=== PATIENT | female | born 1935 | race Caucasian/White ===

== ENCOUNTER 2017-10-02 08:41 | Inpatient (IN) | payer MEDICARE, OTHER ==
[2017-10-02] MEDS ORDERED: NORMAL SALINE 1000 ML 1,000 ML IV ONE (09:06)
[2017-10-02] MEDS ORDERED: FENTANYL CITRATE INJ/PF 100 MCG/2 ML AMPUL IV ONE (09:06)
[2017-10-02] MEDS ORDERED: ONDANSETRON HCL INJ/PF 4 MG/2 ML SDV IV ONE (09:06)
--- NOTE | 2017-10-02 09:07 | ER Document Report ---
ED GI/ - General Chief Complaint: Abdominal Pain >50 Stated Complaint: ABDOMINAL PAIN Time Seen by Provider: 10/02/17 08:59 Mode of Arrival: Ambulatory Information source: Patient Notes: Patient is an 82-year-old female who presents to the ER today for a mass that is painful in her right lower quadrant of the abdomen that started last night and hurt all night long constantly. Patient states that about a month ago this happened and she "pushed it back in." She states that the pain did not return until last night whenever she felt that again. Patient states that it has been giving her some nausea and one episode of vomiting. She denies any diarrhea. She denies any history of hernia that she has been diagnosed with. She denies fevers or chills. TRAVEL OUTSIDE OF THE [place] IN LAST 30 DAYS: No - Related Data Allergies/Adverse Reactions: No Known Allergies Allergy (Verified 10/02/17 08:45) Past Medical History - General Information source: Patient - Social History Smoking Status: Unknown if Ever Smoked Family History: Reviewed & Not Pertinent Review of Systems - Review of Systems Constitutional: No symptoms reported EENT: No symptoms reported Cardiovascular: No symptoms reported Respiratory: No symptoms reported Gastrointestinal: See HPI Genitourinary: No symptoms reported Female Genitourinary: No symptoms reported Musculoskeletal: No symptoms reported Skin: No symptoms reported Hematologic/Lymphatic: No symptoms reported Neurological/Psychological: No symptoms reported Physical Exam - Vital signs Vitals: Temp Pulse Resp BP Pulse Ox 97.5 F 127 H 18 125/68 96 10/02/17 08:48 10/02/17 08:48 10/02/17 08:48 10/02/17 08:48 10/02/17 08:48 - Notes Notes: PHYSICAL EXAMINATION: GENERAL: Well-appearing and in no acute distress. HEAD: Atraumatic, normocephalic. EYES: Pupils equal round and reactive to light, extraocular movements intact, sclera anicteric, conjunctiva are normal. NECK: Normal range of motion, supple without lymphadenopathy LUNGS: CTAB and equal. No wheezes rales or rhonchi. HEART: Regular rate and rhythm without murmurs ABDOMEN: Soft, irreducible soft mass to RLQ with exquisite tenderness, +bowel sounds to mass. No guarding, no rebound BACK: no vertebral tenderness, normal ROM GI/: no CVA tenderness EXTREMITIES: Normal range of motion, no pitting edema. No cyanosis. NEUROLOGICAL: Cranial nerves grossly intact. Normal sensory/motor exams. PSYCH: Normal mood, normal affect. SKIN: Warm, Dry, normal turgor, no rashes or lesions noted Course - Re-evaluation Re-evalutation: 10/02/17 13:15 Patient has a leukocytosis of 13.2, incarcerated right inguinal hernia on CAT scan with small bowel obstruction associated. Dr. Meade, surgeon at bedside attempted to reduce hernia but was unsuccessful. Her PT/INR is prolonged and he is giving her fresh frozen plasma and will take her to the OR in the morning. Hospitalist consultation placed for medical management as she has hypothyroidism, A. fib and cholesterol. - Vital Signs Vital signs: Temp Pulse Resp BP Pulse Ox 97.6 F 109 H 18 137/77 H 94 10/02/17 15:22 10/02/17 15:22 10/02/17 15:22 10/02/17 15:22 10/02/17 15:22 - Laboratory Result Diagrams: 10/02/17 09:34 10/02/17 09:34 Laboratory results interpreted by me: 10/02/17 10/02/17 10/02/17 09:34 09:34 09:34 WBC 13.2 H Hgb 16.0 H Seg Neutrophils % 86.6 H Lymphocytes % 7.7 L Absolute Neutrophils 11.4 H PT APTT Glucose 139 H Urine Protein 100 H Urine Ketones 20 H Urine Blood MODERATE H Urine Urobilinogen 2.0 H Ur Leukocyte Esterase LARGE H 10/02/17 09:34 WBC Hgb Seg Neutrophils % Lymphocytes % Absolute Neutrophils PT 32.0 H APTT 57.1 H Glucose Urine Protein Urine Ketones Urine Blood Urine Urobilinogen Ur Leukocyte Esterase Discharge - Discharge Clinical Impression: Incarcerated inguinal hernia, SBO (small bowel obstruction) Condition: Stable Disposition: ADMITTED INPATIENT Admitting Provider: Surgicalist Unit Admitted: OR
[2017-10-02 09:54] LABS: ABSOLUTE MONOCYTES (AUTO) 0.7 10^3/uL (0.1-1.4); ABSOLUTE NEUT (AUTO) 11.4 10^3/uL (1.7-8.2); BASOPHILS % (AUTO) 0.2 % (0-2); EOSINOPHILS % (AUTO) 0.3 % (0-6); HEMATOCRIT 46.6 % (36.0-47.0); LYMPHOCYTES % (AUTO) 7.7 % (13-45); MEAN CORPUSCULAR HEMOGLOBIN 31.7 pg (27.0-33.4); MEAN CORPUSCULAR HGB CONC 34.4 g/dL (32.0-36.0); MEAN CORPUSCULAR VOLUME 92 fl (80-97); MONOCYTES % (AUTO) 5.2 % (3-13); PLATELET COUNT 364 10^3/uL (150-450); RED BLOOD COUNT 5.06 10^6/uL (3.72-5.28); RED CELL DISTRIBUTION WIDTH 13.6 % (11.5-14.0); SEGMENTED NEUTROPHILS % (AUTO) 86.6 % (42-78); TOTAL CELLS COUNTED % (AUTO) 100 %; WHITE BLOOD COUNT 13.2 10^3/uL (4.0-10.5)
[2017-10-02 10:07] LABS: APPEARANCE,URINE CLOUDY; BILIRUBIN,URINE NEGATIVE (NEGATIVE); COLOR,URINE AMBER; GLUCOSE, URINE NEGATIVE (NEGATIVE); KETONES,URINE 20 mg/dL (NEGATIVE); LEUKOCYTE ESTERASE,URINE LARGE (NEGATIVE); NITRITE,URINE NEGATIVE (NEGATIVE); PROTEIN,URINE 100 mg/dL (NEGATIVE)
[2017-10-02 10:19] LABS: ALANINE AMINOTRANSFERASE 30 U/L (9-52); ALBUMIN 4.4 g/dL (3.5-5.0); ALKALINE PHOSPHATASE 82 U/L (38-126); ANION GAP 12 (5-19); ASPARTATE AMINO TRANSFERASE 18 U/L (14-36); BILIRUBIN,DIRECT 0.4 mg/dL (0.0-0.4); BILIRUBIN,TOTAL 1.2 mg/dL (0.2-1.3); BLOOD UREA NITROGEN 10 mg/dL (7-20); CALCIUM 9.7 mg/dL (8.4-10.2); CARBON DIOXIDE 26 mmol/L (22-30); CHLORIDE 103 mmol/L (98-107); GLUCOSE 139 mg/dL (75-110); LIPASE 103.3 U/L (23-300); SODIUM 141.3 mmol/L (137-145); TOTAL PROTEIN 7.6 g/dL (6.3-8.2)
[2017-10-02] MEDS ORDERED: CEFTRIAXONE INJ 1000 MG VIAL IV ONE (10:20)
--- NOTE | 2017-10-02 11:16 | RADIOLOGY REPORT (SQ) ---
EXAM DESCRIPTION: CT ABD/PELVIS WITH IV ONLY COMPLETED DATE/TIME: 10/02/2017 10:52 am REASON FOR STUDY: right inguinal hernia? not reducible? COMPARISON: None. TECHNIQUE: CT scan of the abdomen and pelvis performed using helical scanning technique with dynamic intravenous contrast injection. No oral contrast. Images reviewed with lung, soft tissue, and bone windows. Reconstructed coronal and sagittal MPR images reviewed. Delayed images for evaluation of the urinary system also acquired. All images stored on PACS. All CT scanners at this facility use dose modulation, iterative reconstruction, and/or weight based d osing when appropriate to reduce radiation dose to as low as reasonably achievable (ALARA). [facility]: Dose Right [facility]: CareDose [facility]: Dose Right [facility]: Teradose 4D [facility]: [employer] CONTRAST TYPE AND DOSE: contrast/concentration: Isovue 370.00 mg/ml; Total Contrast Delivered: 86.0 ml; Total Saline Delivered: 68.0 ml RENAL FUNCTION: GFR > 60. RADIATION DOSE: CT Rad equipment meets quality standard of care and radiation dose reduction techniq ues were employed. CTDIvol: 8.9 - 12.6 mGy. DLP: 1141 mGy-cm.. LIMITATIONS: None. FINDINGS: LOWER CHEST: No significant findings. No nodules or infiltrates. LIVER: Normal size. No masses. No dilated ducts. SPLEEN: Normal size. No focal lesions. PANCREAS: No masses. No significant calcifications. No adjacent inflammation or peripancreatic fluid collections. Pancreatic duct not dilated. GALLBLADDER: Gallstones. No inflammatory changes to suggest cholecystitis. ADRENAL GLANDS: No significant masses or asymmetry. RIGHT KIDNEY AND URETER: No solid masses. No significant calcifications. No hydronephrosis or hyd roureter. LEFT KIDNEY AND URETER: No solid masses. No significant calcifications. No hydronephrosis or hydr oureter. AORTA AND VESSELS: No aneurysm. RETROPERITONEUM: No retroperitoneal adenopathy, hemorrhage or masses. BOWEL AND PERITONEAL CAVITY: Dilated loops of small bowel in the left upper quadrant, midline lower a bdomen and pelvis. There is a right inguinal hernia containing fluid density consistent with bowel. No pneumatosis. No free air. Colon is decompressed. APPENDIX: Normal. PELVIS: Trace free fluid. Normal urinary bladder. ABDOMINAL WALL: See above. BONES: No acute findings. OTHER: No other significant finding. IMPRESSION: Partial small bowel obstruction associated with incarcerated right inguinal hernia. TECHNICAL DOCUMENTATION: JOB ID: [id number] Quality ID # [id number]: Final reports with documentation of one or more dose reduction techniques (e.g., Au tomated exposure control, adjustment of the mA and/or kV according to patient size, use of iterative reconstruction technique) 2010 [employer]- All Rights Reserved Reading location - IP/workstation name: [email or web address] [id number]
[2017-10-02] MEDS ORDERED: HYDROMORPHONE HCL INJ/PF 2 MG/ML AMPULE IV ONE (11:57)
[2017-10-02] MEDS ORDERED: LORAZEPAM INJ 2 MG/1 ML VIAL IV ONE (11:58)
[2017-10-02] MEDS ORDERED: GLYCOPYRROLATE INJ 0.4 MG/2 ML VIAL ONE (12:11)
[2017-10-02] MEDS ORDERED: NEOSTIGMINE METHYLSULFATE 10 MG/10 ML VIAL ONE (12:11)
[2017-10-02] MEDS ORDERED: ROCURONIUM BROMIDE INJ 50 MG/5 ML VIAL IV ONE (12:11)
[2017-10-02] MEDS ORDERED: ONDANSETRON HCL INJ/PF 4 MG/2 ML SDV ONE (12:11)
[2017-10-02] MEDS ORDERED: SUCCINYLCHOLINE CHLORIDE INJ 200 MG/10 ML VIAL ONE (12:11)
[2017-10-02 12:24] LABS: INTERNATIONAL RATION (INR) 2.93
[2017-10-02 12:25] LABS: PARTIAL THROMBOPLASTIN TIME 57.1 SEC (23.5-35.8)
[2017-10-02] MEDS ORDERED: PHYTONADIONE INJ 10 MG/1 ML AMPULE SUBCUT ONE (12:59)
[2017-10-02] MEDS ORDERED: NORMAL SALINE 250 ML IV PRN (12:59)
--- NOTE | 2017-10-02 15:21 | PDOC CONSULTATION ---
Consultation Consult Date: 10/02/17 Attending physician:: KAYLYN MEADE Consult reason:: Abdominal pain and medical management History of Present Illness Admission Date/PCP: 10/02/17 11:51 WILLIAM NUNES MD Patient complains of: Abdominal pain History of Present Illness: SANNA WHITFIELD is a 82 year old female since the emergency department with complaint of abdominal pain. Patient was seen by surgery who was concerned about a partial small bowel obstruction secondary to hernia. Surgery has requested that patient be evaluated by hospitalist service for medical management. Patient states that she experienced abdominal pain and nausea last night which resulted in her coming to the emergency room. Patient denies chest pain, shortness of breath, or fever. Daughters report that patient recently had an echo done prior to an appointment she was supposed to have this upcoming week. Patient had been given FFP and vitamin K to help reverse INR. ER staff states the patient will be scheduled for surgery in a.m. Past Medical History Cardiac Medical History: Reports: Hyperlipidema Endocrine Medical History: Reports: Hypothyroidism Past Surgical History Past Surgical History: Reports: Other - Surgery on knee, surgery on arm, and breast biopsy Social History Information Source: Patient Lives with: Family Smoking Status: Unknown if Ever Smoked Frequency of Alcohol Use: None Hx Recreational Drug Use: No Drugs: None Hx Prescription Drug Abuse: No - Advance Directive Resuscitation Status: Full Code Family History Family History: denies: None, Reviewed & Not Pertinent, Arthritis, CAD, COPD, CVA, DM, Hyperlipidemia, Hypertension, Malignancy, Thyroid Disfunction, Other Parental Family History Reviewed: Yes Children Family History Reviewed: Yes Sibling(s) Family History Reviewed.: Yes Medication/Allergy Home Medications: Diltiazem HCl [Cartia Xt] 300 mg PO DAILY 10/02/17 Levothyroxine Sodium [Synthroid 0.088 mg Tablet] 0.088 mg PO Q6AM 10/02/17 Simvastatin [Zocor 20 mg Tablet] 20 mg PO QHS 10/02/17 Warfarin Sodium [Coumadin 1 mg Tablet] 1 mg PO DAILY 10/02/17 Allergies/Adverse Reactions: No Known Allergies Allergy (Verified 10/02/17 08:45) Review of Systems Constitutional: ABSENT: chills, fever(s), headache(s), weight gain, weight loss Eyes: ABSENT: visual disturbances Ears: ABSENT: hearing changes Cardiovascular: ABSENT: chest pain, dyspnea on exertion, edema, orthropnea, palpitations Respiratory: ABSENT: cough, hemoptysis Gastrointestinal: PRESENT: abdominal pain, nausea Genitourinary: ABSENT: dysuria, hematuria Musculoskeletal: ABSENT: joint swelling Integumentary: ABSENT: rash, wounds Neurological: ABSENT: abnormal gait, abnormal speech, confusion, dizziness, focal weakness, syncope Psychiatric: ABSENT: anxiety, depression, homidical ideation, suicidal ideation Endocrine: ABSENT: cold intolerance, heat intolerance, polydipsia, polyuria Hematologic/Lymphatic: PRESENT: as per HPI Physical Exam Vital Signs: Temp Pulse Resp BP Pulse Ox 97.4 F 107 H 16 148/90 H 98 10/02/17 11:58 10/02/17 11:58 10/02/17 11:58 10/02/17 11:58 10/02/17 11:58 General appearance: PRESENT: no acute distress, well-developed, well-nourished Head exam: PRESENT: atraumatic, normocephalic Eye exam: PRESENT: conjunctiva pink, EOMI. ABSENT: scleral icterus Ear exam: PRESENT: normal external ear exam Mouth exam: PRESENT: moist, tongue midline Neck exam: ABSENT: carotid bruit, JVD, lymphadenopathy, thyromegaly Respiratory exam: PRESENT: clear to auscultation jaimie. ABSENT: rales, rhonchi, wheezes Cardiovascular exam: PRESENT: irregular rhythm Pulses: PRESENT: normal dorsalis pedis pul GI/Abdominal exam: PRESENT: normal bowel sounds, tenderness - Right lower quadrant Rectal exam: PRESENT: deferred Extremities exam: PRESENT: full ROM. ABSENT: calf tenderness, clubbing, pedal edema Musculoskeletal exam: PRESENT: full ROM Neurological exam: PRESENT: alert, awake, oriented to person, oriented to place , oriented to time, oriented to situation, CN II-XII grossly intact. ABSENT: motor sensory deficit Psychiatric exam: PRESENT: appropriate affect, normal mood. ABSENT: homicidal ideation, suicidal ideation Skin exam: PRESENT: dry, intact, warm. ABSENT: cyanosis, rash Results Laboratory Results: 10/02/17 13:34 Blood Type O POSITIVE Impressions: Abdomen/Pelvis CT 10/02/17 09:05 IMPRESSION: Partial small bowel obstruction associated with incarcerated right inguinal hernia. Assessment & Plan - Diagnosis (1) Incarcerated inguinal hernia Is this a current diagnosis for this admission?: Yes Plan: She has been given FFP and vitamin K. Will check PT/INR in a.m. Patient will be scheduled for surgery per ER's report by Dr. Meade. Patient currently n.p.o. we will place on maintenance fluids. (2) Hypothyroidism Is this a current diagnosis for this admission?: Yes Plan: Continue patient's Synthroid (3) Hyperlipidemia Is this a current diagnosis for this admission?: Yes Plan: We will continue patient's statin (4) Atrial fibrillation Is this a current diagnosis for this admission?: Yes Plan: We will continue patient's diltiazem (5) SBO (small bowel obstruction) Is this a current diagnosis for this admission?: Yes Plan: Patient to undergo surgery tomorrow morning (6) DVT prophylaxis Is this a current diagnosis for this admission?: Yes Plan: We will write for SCDs - Time Time Spent: 30 to 50 Minutes
--- NOTE | 2017-10-02 16:23 | PDOC H&P ---
History of Present Illness Admission Date/PCP: 10/02/17 11:51 WILLIAM NUNES MD Patient complains of: Right inguinal pains with N/V History of Present Illness: Patient noted a lump on her right groin last night. She denies cough nor lifting a heavy object. She claimed this happened in July but if went back in spontaneously. Her daughter claimed that patient had flu 2 weeks ago. She was coughing then at that time. Past Medical History Cardiac Medical History: Reports: Atrial Fibrillation, Hyperlipidema Endocrine Medical History: Reports: Hypothyroidism Past Surgical History Past Surgical History: Reports: Other - Surgery on knee, surgery on arm, and breast biopsy Social History Lives with: Family Smoking Status: Unknown if Ever Smoked Frequency of Alcohol Use: None Hx Recreational Drug Use: No Drugs: None Hx Prescription Drug Abuse: No - Advance Directive Resuscitation Status: Full Code Family History Family History: denies: None, Reviewed & Not Pertinent, Arthritis, CAD, COPD, CVA, DM, Hyperlipidemia, Hypertension, Malignancy, Thyroid Disfunction, Other Parental Family History Reviewed: Yes Children Family History Reviewed: No Sibling(s) Family History Reviewed.: No Medication/Allergy Home Medications: Diltiazem HCl [Cartia Xt] 300 mg PO DAILY 10/02/17 Levothyroxine Sodium [Synthroid 0.088 mg Tablet] 0.088 mg PO Q6AM 10/02/17 Simvastatin [Zocor 20 mg Tablet] 20 mg PO QHS 10/02/17 Warfarin Sodium [Coumadin 1 mg Tablet] 6 mg PO DAILY 10/02/17 Allergies/Adverse Reactions: No Known Allergies Allergy (Verified 10/02/17 08:45) Review of Systems Constitutional: PRESENT: as per HPI Eyes: PRESENT: other - no visual/hearing changes Cardiovascular: PRESENT: other - no chest pains/ cough Genitourinary: PRESENT: other - no dysuria Integumentary: PRESENT: other - no rash Neurological: PRESENT: other - no seizures Psychiatric: PRESENT: other - no anxiety Endocrine: PRESENT: other - no polyuria Physical Exam Vital Signs: Temp Pulse Resp BP Pulse Ox 97.6 F 109 H 18 137/77 H 94 10/02/17 15:22 10/02/17 15:22 10/02/17 15:22 10/02/17 15:22 10/02/17 15:22 General appearance: PRESENT: mild distress Head exam: PRESENT: atraumatic, normocephalic Eye exam: PRESENT: conjunctiva pink Mouth exam: PRESENT: moist Neck exam: PRESENT: full ROM Respiratory exam: PRESENT: clear to auscultation jaimie Cardiovascular exam: PRESENT: RRR Pulses: PRESENT: normal radial pulses Vascular exam: PRESENT: normal capillary refill GI/Abdominal exam: PRESENT: soft, tenderness - at the right inguinal area which has nonreducible lump and slightly tender. Rectal exam: PRESENT: deferred Extremities exam: PRESENT: full ROM Musculoskeletal exam: PRESENT: ambulatory Neurological exam: PRESENT: alert, oriented to person, oriented to place, oriented to time, oriented to situation Psychiatric exam: PRESENT: appropriate affect Skin exam: PRESENT: normal color, warm Results Laboratory Results: 10/02/17 13:34 Blood Type O POSITIVE Impressions: Abdomen/Pelvis CT 10/02/17 09:05 IMPRESSION: Partial small bowel obstruction associated with incarcerated right inguinal hernia. Assessment & Plan - Diagnosis (1) Atrial fibrillation Is this a current diagnosis for this admission?: Yes (2) Incarcerated inguinal hernia Is this a current diagnosis for this admission?: Yes (3) SBO (small bowel obstruction) Is this a current diagnosis for this admission?: Yes (4) coagulopathy due to coumadin Is this a current diagnosis for this admission?: Yes - Time Time Spent: 30 to 50 Minutes - Inpatient Certification Medical Necessity: Need For IV Fluids, Need for Pain Control, Need for IV Antibiotics, Need for Surgery - Plan Summary Plan Summary: Correct coagulopathy with FFP and Vit K Medical consult for HR 109 A FIB D/W Anesthesiologist . Obtain EKG and correct tachycardia.
[2017-10-02] MEDS ORDERED: NORMAL SALINE 1000 ML 1,000 ML IV PRN ×2 (16:41→22:52)
--- NOTE | 2017-10-02 17:54 | XCELERA REPORT ---
[address] [address] Transthoracic Echocardiogram Report Name: SANNA WHITFIELD Age: 82 yrs Gender: Female : 1935 Patient Status: Inpatient Patient Location: [address] [place] [address] Study Date: 10/02/2017 05:05 PM Height: 67 in Weight: 176 lb BSA: 1.9 m2 Procedure: A complete two-dimensional transthoracic echocardiogram was performed (2D, M-mode, spectral and color flow Doppler). The study was technically adequate with some images being suboptimal in quality. Reason For Study: pt going to surg/ has a fib Ordering Physician: CHERYL BRADSHAW Performed By: Suha Hubbard Interpretation Summary The Ejection Fraction estimate is 50-55% Left ventricular systolic function is borderline reduced. There is borderline concentric left ventricular hypertrophy. The left ventricle is grossly normal size. Wall motion cannot be accurately commented on, but no definite regional wall motion abnormalities noted. The right ventricle is mildly dilated. The left atrium is severely dilated. The right atrium is moderately dilated. There is a mild amount of mitral regurgitation There is no mitral valve stenosis. There is a mild amount of aortic regurgitation There is no aortic valve stenosis There is a mild amount of tricuspid regurgitation There is mild to moderate pulmonary hypertension by echo Right ventricular systolic pressure is estimated to be elevated at 40- 50mmHg. The aortic root is not well visualized but is probably normal size. The inferior vena cava appeared normal and decreased < 50% with respiration (RAP 10-15 mmHg) There is no pericardial effusion. MMode/2D Measurements & Calculations RVDd: 2.8 cm LVIDd: 4.8 cm FS: 34.1 % Ao root diam: 2.4 cm IVSd: 0.93 cm LVIDs: 3.2 cm EDV(Teich): 109.8 ml LVPWd: 0.87 cm ESV(Teich): 40.7 ml Ao root area: 4.5 cm2 EF(Teich): 62.9 % LA dimension: 4.2 cm Doppler Measurements & Calculations MV E max monica: MV P1/2t max monica: Ao V2 max: AI max monica: 106.6 cm/sec 106.6 cm/sec 90.3 cm/sec 352.9 cm/sec MV P1/2t: 36.4 msec Ao max PG: AI max P.3 mmHg 49.8 mmHg MVA(P1/2t): 6.0 cm2 AI dec slope: MV dec slope: 857.1 cm/sec2 146.3 cm/sec2 AI P1/2t: 706.7 msec LV V1 max PG: PA V2 max: TR max monica: 1.4 mmHg 97.7 cm/sec 303.1 cm/sec LV V1 max: PA max P.8 mmHg TR max P.7 cm/sec 36.8 mmHg Left Ventricle The left ventricle is grossly normal size. There is borderline concentric left ventricular hypertrophy. Left ventricular systolic function is borderline reduced. The Ejection Fraction estimate is 50-55%. LV diastolic function could not be adequately assessed due to atrial fibrilation. Wall motion cannot be accurately commented on, but no definite regional wall motion abnormalities noted. Right Ventricle The right ventricle is mildly dilated. There is normal right ventricular wall thickness. The right ventricular systolic function is normal. Atria The right atrium is moderately dilated. The left atrium is severely dilated. Mitral Valve There is mild mitral leaflet calcification. There is mild mitral annular calcification. There is no mitral valve stenosis. There is a mild amount of mitral regurgitation. Aortic Valve The aortic valve is grossly normal. There is no aortic valve stenosis. There is a mild amount of aortic regurgitation. Tricuspid Valve The tricuspid valve is not well visualized, but is grossly normal. There is no tricuspid stenosis. There is a mild amount of tricuspid regurgitation. There is mild to moderate pulmonary hypertension by echo. Right ventricular systolic pressure is estimated to be elevated at 40-50mmHg. Pulmonic Valve The pulmonic valve is not well visualized. Great Vessels The aortic root is not well visualized but is probably normal size. The inferior vena cava appeared normal and decreased < 50% with respiration (RAP 10-15 mmHg). Effusions There is no pericardial effusion. : CHERYL BRADSHAW > Cheryl Bradshaw
--- NOTE | 2017-10-02 18:47 | PDOC CONSULTATION ---
Consultation Consult Date: 10/02/17 Attending physician:: KAYLYN DAMON Consult reason:: Preop cardiovascular evaluation, atrial fibrillation History of Present Illness Admission Date/PCP: 10/02/17 11:51 WILLIAM NUNES MD Patient complains of: Abdominal pain History of Present Illness: Patient noted a lump on her right groin last night. She denies cough nor lifting a heavy object. She claimed this happened in July but if went back in spontaneously. Her daughter claimed that patient had flu 2 weeks ago. She was coughing then at that time. Patient is now noted to have a obstructed and incarcerated inguinal hernia. Patient noted to have atrial fibrillation. She is on chronic Coumadin therapy with elevated INR. I was asked to evaluate patient and cleared her for surgery. Patient on questioning denied any chest pain. She denied any shortness of breath. Patient denying any PND, orthopnea. Patient denied any prior history of strokes or mini strokes. Past Medical History Cardiac Medical History: Reports: Atrial Fibrillation, Hyperlipidema Endocrine Medical History: Reports: Hypothyroidism Past Surgical History Past Surgical History: Reports: Other - Surgery on knee, surgery on arm, and breast biopsy Social History Information Source: Patient Lives with: Family Smoking Status: Unknown if Ever Smoked Frequency of Alcohol Use: None Hx Recreational Drug Use: No Drugs: None Hx Prescription Drug Abuse: No - Advance Directive Resuscitation Status: Full Code Surrogate healthcare decision maker:: Patient's 2 daughters at the surrogate decision-maker Family History Family History: Hypertension Parental Family History Reviewed: Yes Children Family History Reviewed: Yes Sibling(s) Family History Reviewed.: Yes Medication/Allergy Home Medications: Diltiazem HCl [Cartia Xt] 300 mg PO DAILY 10/02/17 Levothyroxine Sodium [Synthroid 0.088 mg Tablet] 0.088 mg PO Q6AM 10/02/17 Simvastatin [Zocor 20 mg Tablet] 20 mg PO QHS 10/02/17 Warfarin Sodium [Coumadin 1 mg Tablet] 6 mg PO DAILY 10/02/17 Allergies/Adverse Reactions: codeine Allergy (Unverified 10/02/17 17:17) Review of Systems Review of Systems: Please see history of present illness and past medical history as wall. Constitutional: No fever or chills reported. Head : No recent chronic headaches, recent head injury. Eyes: No recent eye pain, diplopia, redness, discharge, acute visual changes. Ears: No recent chronic ear pain, acute hearing loss, ear discharge. Oral cavity: No recent ulcerations, bleeding, oral cavity discomfort. Neck: No recent acute neck pain reported. Hematologic: No recent easy bruising or bleeding or hematologic malignancy reported. Lymphatic: No recent lymphatic malignancy, chronic lymphadenopathy reported yet Cardiovascular system review: See history of present illness. Respiratory system review: No recent chronic cough, hemoptysis, blood clots in the lungs reported. Mild Shortness of breath on exertion Gastrointestinal system review: Abdominal pain and swelling as noted in HPI but denies hematemesis, melena, recent change in bowel habits. Genitourinary system review: No recent acute or chronic hematuria, flank pain, UTI etc. reported. Skin system review: Negative for any recent abnormal bruising, no rash, no pruritus reported. Neurologic: No prior history of strokes, mini strokes, seizure disorder. Psychologic: No history of major psychosis or major depression reported. Musculoskeletal: Minor aches and pains reported. No acute joint swelling reported. Endocrine: No recent polyuria, polydipsia, recent heat or cold intolerance. Physical Exam Vital Signs: Temp Pulse Resp BP Pulse Ox 98.2 F 93 16 152/99 H 97 10/02/17 18:05 10/02/17 18:05 10/02/17 18:05 10/02/17 18:05 10/02/17 18:05 Intake & Output 10/01/17 10/02/17 10/03/17 06:59 06:59 06:59 Intake Total 258 Balance 258 Exam: GENERAL: well-nourished and in no acute distress. Alert and oriented x3 HEAD: Atraumatic, normocephalic. EYES: Pupils equal round and reactive to light, extraocular movements intact, sclera anicteric, conjunctiva are normal. ENT: TMs normal, nares patent, oropharynx clear without exudates. Moist mucous membranes. No oral ulcerations or bleeding gums noted NECK: supple without lymphadenopathy. Trachea is central. No cervical or axillary lymphadenopathy noted. Carotids are 2+, JVD WNL LUNGS: Respiration seems nonlabored, no significant accessory muscle action noted. Breath sounds clear to auscultation bilaterally and equal noted. No wheezes rales or rhonchi noted. No significant dullness noted on percussion. CHEST: Palpation of the chest wall shows no significant chest wall tenderness. No other significant abnormalities noted. 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 ABDOMEN: Tender and somewhat firm swelling noted in the right inguinal region, normoactive bowel sounds. No guarding, no rebound. No rigidity noted . No masses appreciated. EXTREMITIES: Pedal pulses are 1-2+, no calf tenderness noted. No clubbing or cyanosis.trace to 1+ pedal edema noted NEUROLOGICAL: Focused neurological exam showed no significant neurologic deficit. Normal speech, no focal weakness appreciated. PSYCH: Normal mood, normal affect. Judgment and insight within normal limits. SKIN: No significant ecchymosis, skin is noted to be warm. MUSCULOSKELETAL EXAM: No significant acute joint swelling noted. Results Laboratory Results: 10/02/17 13:34 Blood Type O POSITIVE EKG Comments: Atrial fibrillation with reasonably controlled heart rate response and minor nonspecific T-wave changes. Impressions: Abdomen/Pelvis CT 10/02/17 09:05 IMPRESSION: Partial small bowel obstruction associated with incarcerated right inguinal hernia. Assessment & Plan - Diagnosis (1) Preoperative cardiovascular examination Is this a current diagnosis for this admission?: Yes (2) Heart murmur Is this a current diagnosis for this admission?: Yes (3) Mitral regurgitation Qualifiers: Cardiac valve disease etiology: nonrheumatic Qualified Code(s): I34.0 - Nonrheumatic mitral (valve) insufficiency Is this a current diagnosis for this admission?: Yes (4) Aortic incompetence Qualifiers: Cardiac valve disease etiology: nonrheumatic Qualified Code(s): I35.1 - Nonrheumatic aortic (valve) insufficiency Is this a current diagnosis for this admission?: Yes (5) Atrial fibrillation Qualifiers: Atrial fibrillation type: chronic Qualified Code(s): I48.2 - Chronic atrial fibrillation Is this a current diagnosis for this admission?: Yes (6) Hyperlipidemia Qualifiers: Hyperlipidemia type: unspecified Qualified Code(s): E78.5 - Hyperlipidemia , unspecified Is this a current diagnosis for this admission?: Yes (7) Hypothyroidism Qualifiers: Hypothyroidism type: unspecified Qualified Code(s): E03.9 - Hypothyroidism , unspecified Is this a current diagnosis for this admission?: Yes (8) Incarcerated inguinal hernia Is this a current diagnosis for this admission?: Yes (9) coagulopathy due to coumadin Is this a current diagnosis for this admission?: Yes - Notes Notes: Preop cardiovascular examination: Patient cleared for the proposed surgery. Patient currently is stable without any chest pain or shortness of breath. Patient does have atrial fibrillation but heart rate is reasonably well controlled. Patient was noted to have a heart murmur on exam but 2D echo shows just mild valvular regurgitation. Patient's LVEF is around 50-55% and left atrium and right atrium are dilated. At this point patient is hyper coagulated and patient is getting intravenous fresh frozen plasma. I do not feel patient will need a bridge towards anticoagulation postop but would recommend DVT prophylaxis. Heart murmur: Evaluated by 2D echocardiogram. No aortic stenosis noted. Patient noted to have aortic incompetence and mitral regurgitation but these are mild. Atrial fibrillation: For heart rate controlled, recommend Cardizem drip or IV metoprolol and adjust as needed for heart rate control. Hyperlipidemia: He is start statin therapy when allowed p.o. Incarcerated hernia: Surgery is needed. Coagulopathy due to Coumadin: This is being corrected by [facility]. - Time Time Spent: 30 to 50 Minutes - CODE STATUS was discussed, patient remains full code. Surrogate decision-maker unchanged. Multiple medical problems were addressed. More than 50% of the time spent coordinating care, discussing management plans with involved caregivers. Management plans discussed with involved personnels. Medical decision making was of moderate to high complexity , patient's has multiple comorbidities. Medications reviewed and adjusted accordingly: Yes
[2017-10-02] MEDS ORDERED: BUPIVACAINE HCL 0.25 % INJ/PF (2.5 MG/1 ML) 30 ML VIAL ONE (19:30)
[2017-10-02] MEDS ORDERED: HYDROMORPHONE HCL INJ/PF 2 MG/ML AMPULE ONE ×2 (20:03→20:04)
[2017-10-02] MEDS ORDERED: FENTANYL CITRATE INJ/PF 100 MCG/2 ML AMPUL ONE (20:03)
[2017-10-02] MEDS ORDERED: MIDAZOLAM 2 MG/2 ML INJ ONE (20:04)
[2017-10-02] MEDS ORDERED: EPHEDRINE SULFATE INJ 50 MG/1 ML AMPULE ONE (20:04)
[2017-10-02] MEDS ORDERED: PROPOFOL INJ 200 MG/20 ML VIAL IV ONE (20:04)
[2017-10-02] MEDS ORDERED: CEFAZOLIN INJ 1 GM VIAL ONE (21:22)
--- NOTE | 2017-10-02 21:22 | EKG REPORT ---
SEVERITY:- ABNORMAL ECG - ATRIAL FIBRILLATION, V-RATE 68-103 BORDERLINE T ABNORMALITIES, DIFFUSE LEADS : Confirmed by: Cheryl Horner 02-Oct-2017 21:21:31
[2017-10-02] MEDS ORDERED: FENTANYL CITRATE INJ/PF 100 MCG/2 ML AMPUL IV PRN ×3 (21:28)
[2017-10-02] MEDS ORDERED: PROMETHAZINE HCL INJ 25 MG/1 ML VIAL IV PRN (21:28)
[2017-10-02] MEDS ORDERED: DIPHENHYDRAMINE HCL 50 MG/ML VIAL IV PRN (21:28)
[2017-10-02] MEDS ORDERED: METOPROLOL TARTRATE PF/INJ 5 MG/5 ML SDV IV ONE (22:18)
[2017-10-02] MEDS ORDERED: OXYCODONE-ACETAMINOPHEN 5-325 MG TABLET PO PRN (22:45)
[2017-10-02] MEDS ORDERED: CEFAZOLIN 1 GM/D5W RTU 1 GM/50 ML RTUPB IV ONE (22:45)
[2017-10-02] MEDS ORDERED: HYDROMORPHONE HCL INJ/PF 2 MG/ML AMPULE IV PRN (22:46)
--- NOTE | 2017-10-02 23:09 | OPERATIVE REPORT E ---
Operative Report NAME: SANNA WHITFIELD : 1935 AGE: 82Y DATE OF SURGERY: 10/02/2017 ROOM: 220 PREOPERATIVE DIAGNOSIS: Incarcerated right femoral hernia. POSTOPERATIVE DIAGNOSIS: Incarcerated right femoral hernia. OPERATION: Reduction and repair of incarcerated right femoral hernia. ANESTHESIA: General. SURGEON: KAYLYN DAMON M.D. INDICATION: This is an 82-year-old female who noted a lump in the right groin last night. She had some discomfort and sequentially brought to the ED this morning. CT scan of the abdomen revealed an incarcerated femoral hernia with small bowel in the groin inside the hernia. Patient noted to have elevated PT of 2.9 since she is on Coumadin for atrial fib. Her last dose of Coumadin was taken yesterday. She was given about 2 units of fresh frozen plasma and 10 mg of vitamin K subcu and the third unit of fresh frozen plasma running when brought to the OR. DESCRIPTION OF PROCEDURE: After adequate general anesthesia, patient was placed in the supine position and the right groin and abdomen were then prepped and draped in the usual sterile fashion. Patient was given a gram of IV Ancef and an incision was made over the lump on the right groin and taken down further to the subcutaneous area with the use of cautery. Next, a sac was then identified. The tissue through the sac appears to be viable. The sac was bluntly dissected all the way down to the defect in the femoral area and there was an over 1 cm defect and unable to reduce the hernia. The defect was slightly enlarged thru another 0.5 cm with the use of cautery. The sac was then opened and somehow the bowel was reduced before it fully be visualized. However, since there was not any evidence of ischemia through the sac, it appears that the bowel presumed to be viable. There was some small amount of clots on the surface of the sac. This may be more because of the patient's coagulopathy with an INR of 2.9 and it was attempted to be reduced in the Emergency Room. At any rate, the defect was then closed, suturing the inguinal ligament to the Jemal's ligament. About 2 sutures of 0 Prolene were used. The defect was closed nicely. The operative site was then irrigated with saline solution. Adequate hemostasis noted. A very careful good hemostasis primarily with the use of cautery because of the likelihood of still slightly elevated INR. At any rate, the remaining fresh frozen plasma was then completely infused during the procedure. This is the third unit of fresh frozen plasma. Next, the Jen's was then reapproximated with interrupted sutures using 3-0 Vicryl and the skin was then closed with belen. Needle, instrument, sponge count were all correct. ESTIMATED BLOOD LOSS: About 5 mL. DISPOSITION: Patient brought to the recovery room in satisfactory condition. DICTATING PHYSICIAN: KAYLYN DAMON M.D. [id number] PHY#: [id number] ID: [id number] JOB#: [id number] ACCT: [id number] cc:KAYLYN DAMON M.D. >
[2017-10-02] MEDS: SIMVASTATIN 10 MG TABLET PO SCH (23:54)
[2017-10-03 00:08] LABS: INTERNATIONAL RATION (INR) 1.62; PROTHROMBIN TIME 20.2 SEC (11.4-15.4)
[2017-10-03 00:09] LABS: PARTIAL THROMBOPLASTIN TIME 52.2 SEC (23.5-35.8)
[2017-10-03] MEDS ORDERED: HYDRALAZINE HCL INJ/PF 20 MG/1 ML SDV IV PRN (01:39)
[2017-10-03] MEDS ORDERED: DILTIAZEM HCL 240 MG CAPSULE.CR PO ONE (01:45)
[2017-10-03] MEDS: CEFAZOLIN 1 GM/D5W RTU 1 GM/50 ML RTUPB IV SCH ×2 (05:41→14:36)
[2017-10-03] MEDS: LEVOTHYROXINE SODIUM 0.088 MG TABLET PO SCH (05:42)
[2017-10-03 06:31] LABS: INTERNATIONAL RATION (INR) 1.62; PROTHROMBIN TIME 20.2 SEC (11.4-15.4)
[2017-10-03 06:32] LABS: PARTIAL THROMBOPLASTIN TIME 50.8 SEC (23.5-35.8)
[2017-10-03 06:35] LABS: ABSOLUTE EOSINOPHILS # (AUTO) 0.2 10^3/uL (0.0-0.6); ABSOLUTE LYMPHOCYTES (AUTO) 1.5 10^3/uL (0.5-4.7); ABSOLUTE MONOCYTES (AUTO) 0.8 10^3/uL (0.1-1.4); ABSOLUTE NEUT (AUTO) 7.5 10^3/uL (1.7-8.2); BASOPHILS % (AUTO) 0.3 % (0-2); EOSINOPHILS % (AUTO) 1.7 % (0-6); HEMATOCRIT 37.8 % (36.0-47.0); LYMPHOCYTES % (AUTO) 14.8 % (13-45); MEAN CORPUSCULAR HEMOGLOBIN 32.3 pg (27.0-33.4); MEAN CORPUSCULAR HGB CONC 35.5 g/dL (32.0-36.0); MEAN CORPUSCULAR VOLUME 91 fl (80-97); MONOCYTES % (AUTO) 8.2 % (3-13); PLATELET COUNT 262 10^3/uL (150-450); RED BLOOD COUNT 4.15 10^6/uL (3.72-5.28); RED CELL DISTRIBUTION WIDTH 13.6 % (11.5-14.0); TOTAL CELLS COUNTED % (AUTO) 100 %
[2017-10-03 06:36] LABS: HEMOGLOBIN 13.4 g/dL (12.0-15.5)
[2017-10-03 06:44] LABS: ALANINE AMINOTRANSFERASE 27 U/L (9-52); ALBUMIN 3.6 g/dL (3.5-5.0); ALKALINE PHOSPHATASE 69 U/L (38-126); ANION GAP 8 (5-19); ASPARTATE AMINO TRANSFERASE 18 U/L (14-36); BILIRUBIN,DIRECT 0.3 mg/dL (0.0-0.4); BILIRUBIN,TOTAL 0.9 mg/dL (0.2-1.3); BLOOD UREA NITROGEN 7 mg/dL (7-20); CALCIUM 8.5 mg/dL (8.4-10.2); CARBON DIOXIDE 27 mmol/L (22-30); CHLORIDE 106 mmol/L (98-107); GLUCOSE 96 mg/dL (75-110); POTASSIUM 3.4 mmol/L (3.6-5.0); TOTAL PROTEIN 6.5 g/dL (6.3-8.2)
--- NOTE | 2017-10-03 09:00 | EKG REPORT ---
SEVERITY:- ABNORMAL ECG - ATRIAL FIBRILLATION, V-RATE 64-116 BORDERLINE T ABNORMALITIES, DIFFUSE LEADS : Confirmed by: Cheryl Horner 03-Oct-2017 08:59:17
[2017-10-03] MEDS ORDERED: (PENDING PHARMACY ID) (Diltiazem Hcl [Cartia Xt] 300 MG) PO SCH (10:00)
--- NOTE | 2017-10-03 12:14 | PDOC PROGRESS REPORT ---
Subjective Progress Note for:: 10/03/17 Subjective:: No new issues. Reason For Visit: UNILATERAL INCARCERATED INGUINAL HERNIA Physical Exam Vital Signs: Temp Pulse Resp BP Pulse Ox 98.0 F 74 18 154/96 H 96 10/03/17 05:14 10/03/17 07:00 10/03/17 05:14 10/03/17 05:14 10/03/17 05:14 Intake & Output 10/02/17 10/03/17 10/04/17 06:59 06:59 06:59 Intake Total 2295 Output Total 635 Balance 1660 Weight 82.6 kg General appearance: PRESENT: no acute distress, well-developed, well-nourished Head exam: PRESENT: atraumatic, normocephalic Eye exam: PRESENT: conjunctiva pink, EOMI. ABSENT: scleral icterus Ear exam: PRESENT: normal external ear exam Mouth exam: PRESENT: moist, tongue midline Neck exam: ABSENT: carotid bruit, JVD, lymphadenopathy, thyromegaly Respiratory exam: PRESENT: clear to auscultation jaimie. ABSENT: rales, rhonchi, wheezes Cardiovascular exam: PRESENT: RRR. ABSENT: diastolic murmur, rubs, systolic murmur Pulses: PRESENT: normal dorsalis pedis pul Vascular exam: PRESENT: normal capillary refill GI/Abdominal exam: PRESENT: normal bowel sounds, tenderness Rectal exam: PRESENT: deferred Extremities exam: PRESENT: full ROM. ABSENT: calf tenderness, clubbing, pedal edema Neurological exam: PRESENT: alert, awake, oriented to person, oriented to place , oriented to time, oriented to situation, CN II-XII grossly intact. ABSENT: motor sensory deficit Psychiatric exam: PRESENT: appropriate affect, normal mood. ABSENT: homicidal ideation, suicidal ideation Skin exam: PRESENT: dry, intact, warm. ABSENT: cyanosis, rash Results Laboratory Results: 10/03/17 05:34 10/03/17 05:34 10/02/17 10/03/17 10/03/17 13:34 05:34 05:34 WBC 10.0 RBC 4.15 Hgb 13.4 D Hct 37.8 MCV 91 MCH 32.3 MCHC 35.5 RDW 13.6 Plt Count 262 Seg Neutrophils % 75.0 Lymphocytes % 14.8 Monocytes % 8.2 Eosinophils % 1.7 Basophils % 0.3 Absolute Neutrophils 7.5 Absolute Lymphocytes 1.5 Absolute Monocytes 0.8 Absolute Eosinophils 0.2 Absolute Basophils 0.0 Sodium 141.0 Potassium 3.4 L Chloride 106 Carbon Dioxide 27 Anion Gap 8 BUN 7 Creatinine 0.60 Est GFR ( Amer) > 60 Est GFR (Non-Af Amer) > 60 Glucose 96 Calcium 8.5 Magnesium 1.9 Total Bilirubin 0.9 AST 18 ALT 27 Alkaline Phosphatase 69 Total Protein 6.5 Albumin 3.6 Blood Type O POSITIVE Impressions: Abdomen/Pelvis CT 10/02/17 09:05 IMPRESSION: Partial small bowel obstruction associated with incarcerated right inguinal hernia. Assessment & Plan - Diagnosis (1) Incarcerated inguinal hernia Is this a current diagnosis for this admission?: Yes Plan: Status post reduction and repair of incarcerated right femoral hernia: Per surgery (2) Hypothyroidism Qualifiers: Hypothyroidism type: unspecified Qualified Code(s): E03.9 - Hypothyroidism , unspecified Is this a current diagnosis for this admission?: Yes Plan: Continue patient's Synthroid (3) Hyperlipidemia Qualifiers: Hyperlipidemia type: unspecified Qualified Code(s): E78.5 - Hyperlipidemia , unspecified Is this a current diagnosis for this admission?: Yes Plan: We will continue patient's statin (4) Atrial fibrillation Qualifiers: Atrial fibrillation type: chronic Qualified Code(s): I48.2 - Chronic atrial fibrillation Is this a current diagnosis for this admission?: Yes Plan: We will continue patient's diltiazem (5) SBO (small bowel obstruction) Is this a current diagnosis for this admission?: Yes Plan: Status post reduction and repair of incarcerated femoral hernia: Per surgery (6) Hypokalemia Is this a current diagnosis for this admission?: Yes Plan: Will give potassium replacement. Will check BMP and Mg in a.m. (7) DVT prophylaxis Is this a current diagnosis for this admission?: Yes Plan: We will write for SCDs - Time Time Spent with patient: 15-24 minutes
[2017-10-03] MEDS: POTASSI CL 20 MEQ/50 ML RIDER 20 MEQ/50 ML RTUPB IV SCH ×2 (16:40→19:03)
[2017-10-03] MEDS ORDERED: POTASSIUM CHLORIDE 20 MEQ/15 ML UDCUP PO ONE (19:00)
--- NOTE | 2017-10-03 19:41 | PDOC PROGRESS REPORT ---
Subjective Progress Note for:: 10/03/17 Subjective:: Pains right inguinal incision on coughing Tolerated regular diet Reason For Visit: UNILATERAL INCARCERATED INGUINAL HERNIA Physical Exam Vital Signs: Temp Pulse Resp BP Pulse Ox 99.0 F 53 L 20 118/56 L 94 10/03/17 15:01 10/03/17 15:01 10/03/17 15:01 10/03/17 15:01 10/03/17 15:01 Intake & Output 10/02/17 10/03/17 10/04/17 06:59 06:59 06:59 Intake Total 2295 437 Output Total 635 200 Balance 1660 237 Weight 82.6 kg Exam: Abdomen is soft and nontender Incision is clean and dry Results Laboratory Results: 10/03/17 05:34 10/03/17 05:34 10/02/17 10/03/17 10/03/17 13:34 05:34 05:34 WBC 10.0 RBC 4.15 Hgb 13.4 D Hct 37.8 MCV 91 MCH 32.3 MCHC 35.5 RDW 13.6 Plt Count 262 Seg Neutrophils % 75.0 Lymphocytes % 14.8 Monocytes % 8.2 Eosinophils % 1.7 Basophils % 0.3 Absolute Neutrophils 7.5 Absolute Lymphocytes 1.5 Absolute Monocytes 0.8 Absolute Eosinophils 0.2 Absolute Basophils 0.0 Sodium 141.0 Potassium 3.4 L Chloride 106 Carbon Dioxide 27 Anion Gap 8 BUN 7 Creatinine 0.60 Est GFR ( Amer) > 60 Est GFR (Non-Af Amer) > 60 Glucose 96 Calcium 8.5 Magnesium 1.9 Total Bilirubin 0.9 AST 18 ALT 27 Alkaline Phosphatase 69 Total Protein 6.5 Albumin 3.6 Blood Type O POSITIVE Impressions: Abdomen/Pelvis CT 10/02/17 09:05 IMPRESSION: Partial small bowel obstruction associated with incarcerated right inguinal hernia. Assessment & Plan - Diagnosis (1) Atrial fibrillation Qualifiers: Atrial fibrillation type: chronic Qualified Code(s): I48.2 - Chronic atrial fibrillation Is this a current diagnosis for this admission?: Yes (2) Incarcerated inguinal hernia Is this a current diagnosis for this admission?: Yes (3) SBO (small bowel obstruction) Is this a current diagnosis for this admission?: Yes (4) coagulopathy due to coumadin Is this a current diagnosis for this admission?: Yes - Time Time Spent with patient: 15-24 minutes - Plan Summary Plan Summary: Continue regular diet Correct low potassium Recheck blood work in am and if all are normal will discharge
--- NOTE | 2017-10-03 20:38 | PDOC PROGRESS REPORT ---
Subjective Progress Note for:: 10/03/17 Subjective:: Feeling better. Patient seems to be doing better with gradual improvement. Pt is denying any chest arm or neck discomfort. Patient denying any PND, orthopnea. Patient denied any sustained palpitations, dizziness, syncope, near syncope. Patient denying any fever chills. Patient denying any other significant discomfort, except for some pain at the surgical site. Patient is maintaining atrial fibrillation. Heart rate is somewhat increased. Review of systems: Rest review of systems negative. Medications: Medications have been reviewed. Reason For Visit: UNILATERAL INCARCERATED INGUINAL HERNIA Physical Exam Vital Signs: Temp Pulse Resp BP Pulse Ox 97.7 F 111 H 14 130/63 H 96 10/03/17 19:36 10/03/17 19:36 10/03/17 19:36 10/03/17 19:36 10/03/17 19:36 Intake & Output 10/02/17 10/03/17 10/04/17 06:59 06:59 06:59 Intake Total 2295 437 Output Total 635 200 Balance 1660 237 Weight 82.6 kg Exam: GENERAL: well-nourished and in no acute distress. Alert and oriented x3 HEAD: Atraumatic, normocephalic. EYES: Pupils equal round and reactive to light, extraocular movements intact, sclera anicteric, conjunctiva are normal. ENT: TMs normal, nares patent, oropharynx clear without exudates. Moist mucous membranes. No oral ulcerations or bleeding gums noted NECK: supple without lymphadenopathy. Trachea is central. No cervical or axillary lymphadenopathy noted. Carotids are 2+, JVD WNL LUNGS: Respiration seems nonlabored, no significant accessory muscle action noted. Breath sounds clear to auscultation bilaterally and equal noted. No wheezes rales or rhonchi noted. No significant dullness noted on percussion. CHEST: Palpation of the chest wall shows no significant chest wall tenderness. No other significant abnormalities noted. 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 ABDOMEN: Soft, surgical site significant tenderness appreciated, normoactive bowel sounds. No guarding, no rebound. No rigidity noted . No masses appreciated. EXTREMITIES: Pedal pulses are 1-2+, no calf tenderness noted. No clubbing or cyanosis.trace to 1+ pedal edema noted NEUROLOGICAL: Focused neurological exam showed no significant neurologic deficit. Normal speech, no focal weakness appreciated. PSYCH: Normal mood, normal affect. Judgment and insight within normal limits. SKIN: No significant ecchymosis, skin is noted to be warm. MUSCULOSKELETAL EXAM: No significant acute joint swelling noted. Results Laboratory Results: 10/03/17 05:34 10/03/17 05:34 10/03/17 10/03/17 05:34 05:34 WBC 10.0 RBC 4.15 Hgb 13.4 D Hct 37.8 MCV 91 MCH 32.3 MCHC 35.5 RDW 13.6 Plt Count 262 Seg Neutrophils % 75.0 Lymphocytes % 14.8 Monocytes % 8.2 Eosinophils % 1.7 Basophils % 0.3 Absolute Neutrophils 7.5 Absolute Lymphocytes 1.5 Absolute Monocytes 0.8 Absolute Eosinophils 0.2 Absolute Basophils 0.0 Sodium 141.0 Potassium 3.4 L Chloride 106 Carbon Dioxide 27 Anion Gap 8 BUN 7 Creatinine 0.60 Est GFR ( Amer) > 60 Est GFR (Non-Af Amer) > 60 Glucose 96 Calcium 8.5 Magnesium 1.9 Total Bilirubin 0.9 AST 18 ALT 27 Alkaline Phosphatase 69 Total Protein 6.5 Albumin 3.6 EKG Comments: Telemetry shows atrial fibrillation with somewhat rapid ventricular response at times. EKG shows no acute ST-T wave changes. Impressions: Abdomen/Pelvis CT 10/02/17 09:05 IMPRESSION: Partial small bowel obstruction associated with incarcerated right inguinal hernia. Assessment & Plan - Diagnosis (1) Preoperative cardiovascular examination Is this a current diagnosis for this admission?: Yes (2) Heart murmur Is this a current diagnosis for this admission?: Yes (3) Mitral regurgitation Qualifiers: Cardiac valve disease etiology: nonrheumatic Qualified Code(s): I34.0 - Nonrheumatic mitral (valve) insufficiency Is this a current diagnosis for this admission?: Yes (4) Aortic incompetence Qualifiers: Cardiac valve disease etiology: nonrheumatic Qualified Code(s): I35.1 - Nonrheumatic aortic (valve) insufficiency Is this a current diagnosis for this admission?: Yes (5) Atrial fibrillation Qualifiers: Atrial fibrillation type: chronic Qualified Code(s): I48.2 - Chronic atrial fibrillation Is this a current diagnosis for this admission?: Yes (6) Hyperlipidemia Qualifiers: Hyperlipidemia type: unspecified Qualified Code(s): E78.5 - Hyperlipidemia , unspecified Is this a current diagnosis for this admission?: Yes (7) Hypothyroidism Qualifiers: Hypothyroidism type: unspecified Qualified Code(s): E03.9 - Hypothyroidism , unspecified Is this a current diagnosis for this admission?: Yes (8) Incarcerated inguinal hernia Is this a current diagnosis for this admission?: Yes (9) coagulopathy due to coumadin Is this a current diagnosis for this admission?: Yes - Notes Notes: Patient had undergone surgery without any complications. Atrial fibrillation: Continue with rate controlled. Resume chronic anticoagulation when cleared by surgery. Have placed patient on increased doses of beta-shweta for rate control. Will follow tomorrow for adequacy of rate control. Cardiac exam shows no evidence of CHF. Continue patient's medications. There are reviewed and noted to be satisfactory. - Time Time with patient: 15-25 minutes - CODE STATUS was discussed, patient remains full code. Surrogate decision-maker unchanged. Multiple medical problems were addressed. More than 50% of the time spent coordinating care, discussing management plans with involved caregivers. Management plans discussed with involved personnels. Medical decision making was of moderate to high complexity , patient's has multiple comorbidities. Medications reviewed and adjusted accordingly: Yes
[2017-10-03] MEDS ORDERED: DILTIAZEM HCL 240 MG CAPSULE.CR PO SCH (22:00)
[2017-10-03] MEDS: SIMVASTATIN 10 MG TABLET PO SCH (22:29)
[2017-10-03] MEDS: CEFTRIAXONE SODIUM 1,000 MG in NORMAL SALINE 100 ML IV SCH (22:37)
[2017-10-04] MEDS ORDERED: VANCOMYCIN HCL INJ 1000 MG VIAL IV PRN (00:02)
[2017-10-04] MEDS ORDERED: VANCOMYCIN HCL 1,000 MG in DEXTROSE 5%-WATER 250 ML IV ONE (00:15)
[2017-10-04] MEDS ORDERED: VANCOMYCIN HCL INJ 1000 MG VIAL ONE (00:48)
[2017-10-04 03:41] LABS: ABSOLUTE BASOPHILS # (AUTO) 0.1 10^3/uL (0.0-0.2); ABSOLUTE EOSINOPHILS # (AUTO) 0.1 10^3/uL (0.0-0.6); ABSOLUTE LYMPHOCYTES (AUTO) 1.9 10^3/uL (0.5-4.7); ABSOLUTE NEUT (AUTO) 6.5 10^3/uL (1.7-8.2); BASOPHILS % (AUTO) 0.6 % (0-2); EOSINOPHILS % (AUTO) 1.3 % (0-6); HEMATOCRIT 37.2 % (36.0-47.0); HEMOGLOBIN 13.1 g/dL (12.0-15.5); LYMPHOCYTES % (AUTO) 19.5 % (13-45); MEAN CORPUSCULAR HEMOGLOBIN 32.1 pg (27.0-33.4); MEAN CORPUSCULAR HGB CONC 35.3 g/dL (32.0-36.0); MEAN CORPUSCULAR VOLUME 91 fl (80-97); MONOCYTES % (AUTO) 10.3 % (3-13); PLATELET COUNT 250 10^3/uL (150-450); RED BLOOD COUNT 4.09 10^6/uL (3.72-5.28); RED CELL DISTRIBUTION WIDTH 13.5 % (11.5-14.0); SEGMENTED NEUTROPHILS % (AUTO) 68.3 % (42-78); TOTAL CELLS COUNTED % (AUTO) 100 %; WHITE BLOOD COUNT 9.5 10^3/uL (4.0-10.5)
[2017-10-04 03:56] LABS: ANION GAP 8 (5-19); BLOOD UREA NITROGEN 7 mg/dL (7-20); CALCIUM 8.9 mg/dL (8.4-10.2); CARBON DIOXIDE 24 mmol/L (22-30); CHLORIDE 110 mmol/L (98-107); GLUCOSE 112 mg/dL (75-110); POTASSIUM 3.6 mmol/L (3.6-5.0); SODIUM 141.5 mmol/L (137-145)
[2017-10-04] MEDS: LEVOTHYROXINE SODIUM 0.088 MG TABLET PO SCH (05:30)
[2017-10-04 08:25] LABS: INTERNATIONAL RATION (INR) 1.37; PROTHROMBIN TIME 17.7 SEC (11.4-15.4)
[2017-10-04 08:26] LABS: PARTIAL THROMBOPLASTIN TIME 53.3 SEC (23.5-35.8)
--- NOTE | 2017-10-04 09:19 | PDOC PROGRESS REPORT ---
Subjective Progress Note for:: 10/04/17 Subjective:: She states that she is feeling better today. Patient states that she has not had any fever or sweating episodes. Patient's daughter was at bedside and family was made aware of patient's blood culture being positive. Awaiting ID of organism. Reason For Visit: UNILATERAL INCARCERATED INGUINAL HERNIA Physical Exam Vital Signs: Temp Pulse Resp BP Pulse Ox 98.8 F 94 16 133/67 H 94 10/04/17 04:04 10/04/17 07:00 10/04/17 04:04 10/04/17 04:04 10/04/17 04:04 Intake & Output 10/03/17 10/04/17 10/05/17 06:59 06:59 06:59 Intake Total 2295 1805 Output Total 635 1450 Balance 1660 355 Weight 82.6 kg 82.4 kg General appearance: PRESENT: no acute distress, well-developed, well-nourished Head exam: PRESENT: atraumatic, normocephalic Eye exam: PRESENT: conjunctiva pink, EOMI. ABSENT: scleral icterus Ear exam: PRESENT: normal external ear exam Mouth exam: PRESENT: moist, tongue midline Neck exam: ABSENT: carotid bruit, JVD, lymphadenopathy, thyromegaly Respiratory exam: PRESENT: clear to auscultation jaimie. ABSENT: rales, rhonchi, wheezes Cardiovascular exam: PRESENT: RRR. ABSENT: diastolic murmur, rubs, systolic murmur Pulses: PRESENT: normal dorsalis pedis pul Vascular exam: PRESENT: normal capillary refill GI/Abdominal exam: PRESENT: normal bowel sounds, soft, tenderness. ABSENT: distended, guarding, mass, organolmegaly, rebound Rectal exam: PRESENT: deferred Extremities exam: PRESENT: full ROM. ABSENT: calf tenderness, clubbing, pedal edema Musculoskeletal exam: PRESENT: full ROM Neurological exam: PRESENT: alert, awake, oriented to person, oriented to place , oriented to time, oriented to situation, CN II-XII grossly intact. ABSENT: motor sensory deficit Psychiatric exam: PRESENT: appropriate affect, normal mood. ABSENT: homicidal ideation, suicidal ideation Skin exam: PRESENT: dry, intact, warm. ABSENT: cyanosis, rash Results Laboratory Results: 10/04/17 03:20 10/04/17 03:20 10/04/17 10/04/17 03:20 03:20 WBC 9.5 RBC 4.09 Hgb 13.1 Hct 37.2 MCV 91 MCH 32.1 MCHC 35.3 RDW 13.5 Plt Count 250 Seg Neutrophils % 68.3 Lymphocytes % 19.5 Monocytes % 10.3 Eosinophils % 1.3 Basophils % 0.6 Absolute Neutrophils 6.5 Absolute Lymphocytes 1.9 Absolute Monocytes 1.0 Absolute Eosinophils 0.1 Absolute Basophils 0.1 Sodium 141.5 Potassium 3.6 Chloride 110 H Carbon Dioxide 24 Anion Gap 8 BUN 7 Creatinine 0.62 Est GFR ( Amer) > 60 Est GFR (Non-Af Amer) > 60 Glucose 112 H Calcium 8.9 Magnesium 1.9 Impressions: Abdomen/Pelvis CT 10/02/17 09:05 IMPRESSION: Partial small bowel obstruction associated with incarcerated right inguinal hernia. Assessment & Plan - Diagnosis (1) Incarcerated inguinal hernia Is this a current diagnosis for this admission?: Yes Plan: Status post reduction and repair of incarcerated right femoral hernia: Per surgery (2) Hypothyroidism Qualifiers: Hypothyroidism type: unspecified Qualified Code(s): E03.9 - Hypothyroidism , unspecified Is this a current diagnosis for this admission?: Yes Plan: Continue patient's Synthroid (3) Hyperlipidemia Qualifiers: Hyperlipidemia type: unspecified Qualified Code(s): E78.5 - Hyperlipidemia , unspecified Is this a current diagnosis for this admission?: Yes Plan: We will continue patient's statin (4) Atrial fibrillation Qualifiers: Atrial fibrillation type: chronic Qualified Code(s): I48.2 - Chronic atrial fibrillation Is this a current diagnosis for this admission?: Yes Plan: We will continue patient's diltiazem (5) SBO (small bowel obstruction) Is this a current diagnosis for this admission?: Yes Plan: Status post reduction and repair of incarcerated femoral hernia: Per surgery (6) Hypokalemia Is this a current diagnosis for this admission?: Yes Plan: Resolved. (7) Gram-positive cocci bacteremia Is this a current diagnosis for this admission?: Yes Plan: Patient currently on vancomycin. Awaiting ID and sensitivities of culture. (8) DVT prophylaxis Is this a current diagnosis for this admission?: Yes Plan: SCDs - Time Time Spent with patient: 15-24 minutes
[2017-10-04] MEDS ORDERED: PHARMACY COMMUNICATION ORDER MC SCH (10:00)
--- NOTE | 2017-10-04 10:35 | EKG REPORT ---
SEVERITY:- ABNORMAL ECG - ATRIAL FIBRILLATION, V-RATE 54-122 VENTRICULAR TRIGEMINY BORDERLINE T ABNORMALITIES, DIFFUSE LEADS : Confirmed by: Cheryl Horner 04-Oct-2017 10:34:49
[2017-10-04] MEDS ORDERED: POLYETHYLENE GLYCOL 3350 POWDER 17 GM/1 PACKET PO ONE (11:00)
[2017-10-04] MEDS: VANCOMYCIN HCL 1,000 MG in DEXTROSE 5%-WATER 250 ML IV SCH (13:11)
--- NOTE | 2017-10-04 13:19 | PDOC PROGRESS REPORT ---
Subjective Progress Note for:: 10/04/17 Subjective:: Feels well. groin pain only when she moves. Tolerating diet well with no nausea. No abdominal pain. Reason For Visit: UNILATERAL INCARCERATED INGUINAL HERNIA Physical Exam Vital Signs: Temp Pulse Resp BP Pulse Ox 97.9 F 105 H 17 118/63 97 10/04/17 12:28 10/04/17 12:28 10/04/17 12:28 10/04/17 12:28 10/04/17 12:28 Intake & Output 10/03/17 10/04/17 10/05/17 06:59 06:59 06:59 Intake Total 2295 1805 340 Output Total 635 1450 Balance 1660 355 340 Weight 82.6 kg 82.4 kg General appearance: PRESENT: no acute distress, cooperative Respiratory exam: PRESENT: clear to auscultation jaimie Cardiovascular exam: PRESENT: irregular rhythm GI/Abdominal exam: PRESENT: other - Soft, nondistended, nontender to palpation other than mild tenderness at the groin. No erythema. And no swelling at the groin. Results Laboratory Results: 10/04/17 03:20 10/04/17 03:20 10/04/17 10/04/17 03:20 03:20 WBC 9.5 RBC 4.09 Hgb 13.1 Hct 37.2 MCV 91 MCH 32.1 MCHC 35.3 RDW 13.5 Plt Count 250 Seg Neutrophils % 68.3 Lymphocytes % 19.5 Monocytes % 10.3 Eosinophils % 1.3 Basophils % 0.6 Absolute Neutrophils 6.5 Absolute Lymphocytes 1.9 Absolute Monocytes 1.0 Absolute Eosinophils 0.1 Absolute Basophils 0.1 Sodium 141.5 Potassium 3.6 Chloride 110 H Carbon Dioxide 24 Anion Gap 8 BUN 7 Creatinine 0.62 Est GFR ( Amer) > 60 Est GFR (Non-Af Amer) > 60 Glucose 112 H Calcium 8.9 Magnesium 1.9 Impressions: Abdomen/Pelvis CT 10/02/17 09:05 IMPRESSION: Partial small bowel obstruction associated with incarcerated right inguinal hernia. Assessment & Plan - Diagnosis (1) Femoral hernia of right side Is this a current diagnosis for this admission?: Yes Plan: Status post repair. Patient looks good from a surgical standpoint. However patient has had a rapid ventricular rate with her A. fib. She also had a positive gram-positive blood culture which I suspect is a contaminant but will await final culture result. When she is stable from a medical standpoint will discharge patient home. We will go ahead and restart her Coumadin.
[2017-10-04] MEDS ORDERED: (PENDING PHARMACY ID) (Warfarin Sodium 6 MG) PO SCH (13:30)
[2017-10-04] MEDS ORDERED: DILTIAZEM HCL 180 MG CAPSULE.CR PO ONE (14:00)
--- NOTE | 2017-10-04 20:28 | PDOC PROGRESS REPORT ---
Subjective Progress Note for:: 10/04/17 Subjective:: Feeling better. Patient however noted to have elevated heart rate on minimal exertion. Patient denying any chest or abdominal discomfort. Blood cultures noted to be growing some bacteria. Patient somewhat upset about it. Reason For Visit: UNILATERAL INCARCERATED INGUINAL HERNIA Physical Exam Vital Signs: Temp Pulse Resp BP Pulse Ox 98.1 F 87 20 123/78 98 10/04/17 15:00 10/04/17 15:00 10/04/17 15:00 10/04/17 15:00 10/04/17 15:00 Intake & Output 10/03/17 10/04/17 10/05/17 06:59 06:59 06:59 Intake Total 2295 1805 590 Output Total 635 1450 Balance 1660 355 590 Weight 82.6 kg 82.4 kg Exam: GENERAL: well-nourished and in no acute distress. Alert and oriented x3 HEAD: Atraumatic, normocephalic. EYES: Pupils equal round and reactive to light, extraocular movements intact, sclera anicteric, conjunctiva are normal. ENT: TMs normal, nares patent, oropharynx clear without exudates. Moist mucous membranes. No oral ulcerations or bleeding gums noted NECK: supple without lymphadenopathy. Trachea is central. No cervical or axillary lymphadenopathy noted. Carotids are 2+, JVD WNL LUNGS: Respiration seems nonlabored, no significant accessory muscle action noted. Breath sounds clear to auscultation bilaterally and equal noted. No wheezes rales or rhonchi noted. No significant dullness noted on percussion. CHEST: Palpation of the chest wall shows no significant chest wall tenderness. No other significant abnormalities noted. HEART: [place] [employer], No PSH, 1/6 JASE aortic area, 1/6 bazan systolic murmur mitral area, no rubs, no gallops. ABDOMEN: Soft, mild postsurgical tenderness appreciated, normoactive bowel sounds. No guarding, no rebound. No rigidity noted . No masses appreciated. EXTREMITIES: Pedal pulses are 1-2+, no calf tenderness noted. No clubbing or cyanosis.trace to 1+ pedal edema noted NEUROLOGICAL: Focused neurological exam showed no significant neurologic deficit. Normal speech, no focal weakness appreciated. PSYCH: Normal mood, normal affect. Judgment and insight within normal limits. SKIN: No significant ecchymosis, skin is noted to be warm. MUSCULOSKELETAL EXAM: No significant acute joint swelling noted. Results Laboratory Results: 10/04/17 03:20 10/04/17 03:20 10/04/17 10/04/17 03:20 03:20 WBC 9.5 RBC 4.09 Hgb 13.1 Hct 37.2 MCV 91 MCH 32.1 MCHC 35.3 RDW 13.5 Plt Count 250 Seg Neutrophils % 68.3 Lymphocytes % 19.5 Monocytes % 10.3 Eosinophils % 1.3 Basophils % 0.6 Absolute Neutrophils 6.5 Absolute Lymphocytes 1.9 Absolute Monocytes 1.0 Absolute Eosinophils 0.1 Absolute Basophils 0.1 Sodium 141.5 Potassium 3.6 Chloride 110 H Carbon Dioxide 24 Anion Gap 8 BUN 7 Creatinine 0.62 Est GFR ( Amer) > 60 Est GFR (Non-Af Amer) > 60 Glucose 112 H Calcium 8.9 Magnesium 1.9 EKG Comments: Telemetry shows atrial fibrillation with mildly rapid ventricular response especially on exertion. Impressions: Abdomen/Pelvis CT 10/02/17 09:05 IMPRESSION: Partial small bowel obstruction associated with incarcerated right inguinal hernia. Assessment & Plan - Diagnosis (1) Preoperative cardiovascular examination Is this a current diagnosis for this admission?: Yes (2) Heart murmur Is this a current diagnosis for this admission?: Yes (3) Mitral regurgitation Qualifiers: Cardiac valve disease etiology: nonrheumatic Qualified Code(s): I34.0 - Nonrheumatic mitral (valve) insufficiency Is this a current diagnosis for this admission?: Yes (4) Aortic incompetence Qualifiers: Cardiac valve disease etiology: nonrheumatic Qualified Code(s): I35.1 - Nonrheumatic aortic (valve) insufficiency Is this a current diagnosis for this admission?: Yes (5) Atrial fibrillation Qualifiers: Atrial fibrillation type: chronic Qualified Code(s): I48.2 - Chronic atrial fibrillation Is this a current diagnosis for this admission?: Yes (6) Hyperlipidemia Qualifiers: Hyperlipidemia type: unspecified Qualified Code(s): E78.5 - Hyperlipidemia , unspecified Is this a current diagnosis for this admission?: Yes (7) Hypothyroidism Qualifiers: Hypothyroidism type: unspecified Qualified Code(s): E03.9 - Hypothyroidism , unspecified Is this a current diagnosis for this admission?: Yes (8) Incarcerated inguinal hernia Is this a current diagnosis for this admission?: Yes (9) coagulopathy due to coumadin Is this a current diagnosis for this admission?: Yes - Notes Notes: Atrial fibrillation: Dose of Cardizem CD increased to 180 mg p.o. twice daily. May need to add small dose of beta-shweta if needed. Hyperlipidemia: Recommend statin therapy. Incarcerated hernia: Resolved after surgery Coagulopathy due to Coumadin: This has resolved. Recommend reinstituting chronic Coumadin therapy. - Time Time with patient: 15-25 minutes - CODE STATUS was discussed, patient remains full code. Surrogate decision-maker unchanged. Multiple medical problems were addressed. More than 50% of the time spent coordinating care, discussing management plans with involved caregivers. Management plans discussed with involved personnels. Medical decision making was of moderate to high complexity , patient's has multiple comorbidities. Medications reviewed and adjusted accordingly: Yes
[2017-10-04] MEDS ORDERED: DILTIAZEM HCL 180 MG CAPSULE.CR PO SCH (22:00)
[2017-10-04] MEDS ORDERED: DILTIAZEM HCL 120 MG CAP.SR.24H PO SCH ×2 (22:00)
[2017-10-04] MEDS: DILTIAZEM HCL 180 MG CAPSULE.CR PO SCH (22:16)
[2017-10-04] MEDS: WARFARIN SODIUM 2 MG TABLET PO SCH (22:18)
[2017-10-04] MEDS: SIMVASTATIN 10 MG TABLET PO SCH (22:19)
[2017-10-04] MEDS: CEFTRIAXONE SODIUM 1,000 MG in NORMAL SALINE 100 ML IV SCH (22:20)
[2017-10-05] MEDS: VANCOMYCIN HCL 1,000 MG in DEXTROSE 5%-WATER 250 ML IV SCH ×2 (00:07→12:00)
[2017-10-05 05:50] LABS: ABSOLUTE BASOPHILS # (AUTO) 0.1 10^3/uL (0.0-0.2); ABSOLUTE EOSINOPHILS # (AUTO) 0.2 10^3/uL (0.0-0.6); ABSOLUTE LYMPHOCYTES (AUTO) 1.5 10^3/uL (0.5-4.7); ABSOLUTE MONOCYTES (AUTO) 0.8 10^3/uL (0.1-1.4); ABSOLUTE NEUT (AUTO) 5.2 10^3/uL (1.7-8.2); BASOPHILS % (AUTO) 0.9 % (0-2); HEMATOCRIT 35.7 % (36.0-47.0); HEMOGLOBIN 12.5 g/dL (12.0-15.5); MEAN CORPUSCULAR VOLUME 91 fl (80-97); MONOCYTES % (AUTO) 9.8 % (3-13); PLATELET COUNT 271 10^3/uL (150-450); RED CELL DISTRIBUTION WIDTH 13.4 % (11.5-14.0); SEGMENTED NEUTROPHILS % (AUTO) 68.3 % (42-78); TOTAL CELLS COUNTED % (AUTO) 100 %; WHITE BLOOD COUNT 7.7 10^3/uL (4.0-10.5)
[2017-10-05 05:56] LABS: INTERNATIONAL RATION (INR) 1.17; PROTHROMBIN TIME 15.6 SEC (11.4-15.4)
[2017-10-05 06:15] LABS: ALANINE AMINOTRANSFERASE 28 U/L (9-52); ALKALINE PHOSPHATASE 60 U/L (38-126); ANION GAP 8 (5-19); ASPARTATE AMINO TRANSFERASE 12 U/L (14-36); BILIRUBIN,DIRECT 0.4 mg/dL (0.0-0.4); BILIRUBIN,TOTAL 0.8 mg/dL (0.2-1.3); BLOOD UREA NITROGEN 11 mg/dL (7-20); CALCIUM 8.9 mg/dL (8.4-10.2); CARBON DIOXIDE 23 mmol/L (22-30); CHLORIDE 109 mmol/L (98-107); GLUCOSE 109 mg/dL (75-110); POTASSIUM 3.6 mmol/L (3.6-5.0); TOTAL PROTEIN 5.7 g/dL (6.3-8.2)
[2017-10-05] MEDS: LEVOTHYROXINE SODIUM 0.088 MG TABLET PO SCH (06:36)
[2017-10-05] MEDS ORDERED: POLYETHYLENE GLYCOL 3350 POWDER 17 GM/1 PACKET PO ONE (09:00)
[2017-10-05] MEDS: DILTIAZEM HCL 180 MG CAPSULE.CR PO SCH ×2 (09:59→22:21)
[2017-10-05] MEDS ORDERED: POLYETHYLENE GLYCOL 3350 POWDER 17 GM/1 PACKET PO SCH (10:00)
[2017-10-05 12:31] LABS: VANCOMYCIN,TROUGH 10.7 ug/mL (5.0-20.0)
--- NOTE | 2017-10-05 15:02 | PDOC PROGRESS REPORT ---
Subjective Progress Note for:: 10/05/17 Subjective:: She states that she is doing much better. Patient states she has been ambulating around the hallway. Patient states she has not had a bowel movement in 3-4 days. Daughter states that she uses MiraLAX normally but due to abdominal pain and nausea she has not been able to take MiraLAX. Reason For Visit: UNILATERAL INCARCERATED INGUINAL HERNIA Physical Exam Vital Signs: Temp Pulse Resp BP Pulse Ox 98.2 F 93 20 116/68 98 10/05/17 12:47 10/05/17 14:00 10/05/17 12:47 10/05/17 12:47 10/05/17 12:47 Intake & Output 10/04/17 10/05/17 10/06/17 06:59 06:59 06:59 Intake Total 1805 1340 570 Output Total 1450 Balance 355 1340 570 Weight 82.4 kg General appearance: PRESENT: no acute distress, well-developed, well-nourished Head exam: PRESENT: atraumatic, normocephalic Eye exam: PRESENT: conjunctiva pink, EOMI. ABSENT: scleral icterus Ear exam: PRESENT: normal external ear exam Mouth exam: PRESENT: moist, tongue midline Neck exam: ABSENT: carotid bruit, JVD, lymphadenopathy, thyromegaly Respiratory exam: PRESENT: clear to auscultation jaimie. ABSENT: rales, rhonchi, wheezes Cardiovascular exam: PRESENT: RRR. ABSENT: diastolic murmur, rubs, systolic murmur Pulses: PRESENT: normal dorsalis pedis pul Vascular exam: PRESENT: normal capillary refill GI/Abdominal exam: PRESENT: other - Positive for bowel sounds, tenderness at site of surgical incision, no erythema redness Rectal exam: PRESENT: deferred Extremities exam: PRESENT: full ROM. ABSENT: calf tenderness, clubbing, pedal edema Neurological exam: PRESENT: alert, awake, oriented to person, oriented to place , oriented to time, oriented to situation, CN II-XII grossly intact. ABSENT: motor sensory deficit Psychiatric exam: PRESENT: appropriate affect, normal mood. ABSENT: homicidal ideation, suicidal ideation Skin exam: PRESENT: dry, intact, warm. ABSENT: cyanosis, rash Results Laboratory Results: 10/05/17 05:12 10/05/17 11:44 10/05/17 10/05/17 10/05/17 05:12 05:12 11:44 WBC 7.7 RBC 3.90 Hgb 12.5 Hct 35.7 L MCV 91 MCH 32.0 MCHC 35.0 RDW 13.4 Plt Count 271 Seg Neutrophils % 68.3 Lymphocytes % 19.0 Monocytes % 9.8 Eosinophils % 2.0 Basophils % 0.9 Absolute Neutrophils 5.2 Absolute Lymphocytes 1.5 Absolute Monocytes 0.8 Absolute Eosinophils 0.2 Absolute Basophils 0.1 Sodium 140.0 Potassium 3.6 Chloride 109 H Carbon Dioxide 23 Anion Gap 8 BUN 11 Creatinine 0.71 0.74 Est GFR ( Amer) > 60 > 60 Est GFR (Non-Af Amer) > 60 > 60 Glucose 109 Calcium 8.9 Total Bilirubin 0.8 AST 12 L ALT 28 Alkaline Phosphatase 60 Total Protein 5.7 L Albumin 3.0 L 10/03/17 17:42 Clean Catch Midstream Urine Culture - Final NO GROWTH 2 DAYS Impressions: Abdomen/Pelvis CT 10/02/17 09:05 IMPRESSION: Partial small bowel obstruction associated with incarcerated right inguinal hernia. Assessment & Plan - Diagnosis (1) Incarcerated inguinal hernia Is this a current diagnosis for this admission?: Yes Plan: Status post reduction and repair of incarcerated right femoral hernia: Per surgery (2) Hypothyroidism Qualifiers: Hypothyroidism type: unspecified Qualified Code(s): E03.9 - Hypothyroidism , unspecified Is this a current diagnosis for this admission?: Yes Plan: Continue patient's Synthroid (3) Hyperlipidemia Qualifiers: Hyperlipidemia type: unspecified Qualified Code(s): E78.5 - Hyperlipidemia , unspecified Is this a current diagnosis for this admission?: Yes Plan: We will continue patient's statin (4) Atrial fibrillation Qualifiers: Atrial fibrillation type: chronic Qualified Code(s): I48.2 - Chronic atrial fibrillation Is this a current diagnosis for this admission?: Yes Plan: We will continue patient's diltiazem and patient restarted on Coumadin. (5) SBO (small bowel obstruction) Is this a current diagnosis for this admission?: Yes Plan: Status post reduction and repair of incarcerated femoral hernia: Resolved (6) Hypokalemia Is this a current diagnosis for this admission?: Yes Plan: Resolved. (7) Gram-positive cocci bacteremia Is this a current diagnosis for this admission?: Yes Plan: Contamination. Antibiotics discontinued (8) Constipation Is this a current diagnosis for this admission?: Yes Plan: We will write for soapsuds enema. If patient has bowel movement patient okay to go home. (9) DVT prophylaxis Is this a current diagnosis for this admission?: Yes Plan: SCDs - Time Time Spent with patient: 15-24 minutes
[2017-10-05] MEDS: RINGERS SOLUTION,LACTATED 1,000 ML IV PRN (18:42)
[2017-10-05] MEDS: ONDANSETRON HCL INJ/PF 4 MG/2 ML SDV IV PRN (21:36)
--- NOTE | 2017-10-05 21:46 | PDOC PROGRESS REPORT ---
Subjective Progress Note for:: 10/05/17 Subjective:: About to be discharged when she vomitted greenish fluid Reason For Visit: UNILATERAL INCARCERATED INGUINAL HERNIA Physical Exam Vital Signs: Temp Pulse Resp BP Pulse Ox 99.0 F 79 13 130/85 H 97 10/05/17 19:21 10/05/17 19:21 10/05/17 19:21 10/05/17 19:21 10/05/17 19:21 Intake & Output 10/04/17 10/05/17 10/06/17 06:59 06:59 06:59 Intake Total 1805 1340 970 Output Total 1450 Balance 355 1340 970 Weight 82.4 kg General appearance: PRESENT: no acute distress Exam: abd is soft and nontender. Has chronic problems with constipation and takes MIRALAX every morning for years. Had some response to enema and took MIRALAX this am. Results Laboratory Results: 10/05/17 05:12 10/05/17 11:44 10/05/17 10/05/17 10/05/17 05:12 05:12 11:44 WBC 7.7 RBC 3.90 Hgb 12.5 Hct 35.7 L MCV 91 MCH 32.0 MCHC 35.0 RDW 13.4 Plt Count 271 Seg Neutrophils % 68.3 Lymphocytes % 19.0 Monocytes % 9.8 Eosinophils % 2.0 Basophils % 0.9 Absolute Neutrophils 5.2 Absolute Lymphocytes 1.5 Absolute Monocytes 0.8 Absolute Eosinophils 0.2 Absolute Basophils 0.1 Sodium 140.0 Potassium 3.6 Chloride 109 H Carbon Dioxide 23 Anion Gap 8 BUN 11 Creatinine 0.71 0.74 Est GFR ( Amer) > 60 > 60 Est GFR (Non-Af Amer) > 60 > 60 Glucose 109 Calcium 8.9 Total Bilirubin 0.8 AST 12 L ALT 28 Alkaline Phosphatase 60 Total Protein 5.7 L Albumin 3.0 L 10/03/17 17:42 Clean Catch Midstream Urine Culture - Final NO GROWTH 2 DAYS Impressions: Abdomen/Pelvis CT 10/02/17 09:05 IMPRESSION: Partial small bowel obstruction associated with incarcerated right inguinal hernia. Assessment & Plan - Diagnosis (1) Atrial fibrillation Qualifiers: Atrial fibrillation type: chronic Qualified Code(s): I48.2 - Chronic atrial fibrillation Is this a current diagnosis for this admission?: Yes (2) Incarcerated inguinal hernia Is this a current diagnosis for this admission?: Yes (3) SBO (small bowel obstruction) Is this a current diagnosis for this admission?: Yes (4) coagulopathy due to coumadin Is this a current diagnosis for this admission?: Yes (5) Constipation Is this a current diagnosis for this admission?: Yes - Time Time Spent with patient: 15-24 minutes - Plan Summary Plan Summary: Cancel discharge. Hydrate and try clears for now. Re-evaluate in am. Vomiting may be due to her constipation Try enema in am.
[2017-10-05] MEDS: WARFARIN SODIUM 2 MG TABLET PO SCH (22:21)
[2017-10-05] MEDS: SIMVASTATIN 10 MG TABLET PO SCH (22:21)
[2017-10-06] MEDS: RINGERS SOLUTION,LACTATED 1,000 ML IV PRN ×2 (03:44→18:46)
[2017-10-06] MEDS: LEVOTHYROXINE SODIUM 0.088 MG TABLET PO SCH (05:48)
[2017-10-06 06:54] LABS: ABSOLUTE EOSINOPHILS # (AUTO) 0.1 10^3/uL (0.0-0.6); ABSOLUTE LYMPHOCYTES (AUTO) 1.9 10^3/uL (0.5-4.7); ABSOLUTE MONOCYTES (AUTO) 0.7 10^3/uL (0.1-1.4); ABSOLUTE NEUT (AUTO) 5.2 10^3/uL (1.7-8.2); BASOPHILS % (AUTO) 0.4 % (0-2); EOSINOPHILS % (AUTO) 1.6 % (0-6); HEMATOCRIT 36.9 % (36.0-47.0); HEMOGLOBIN 12.7 g/dL (12.0-15.5); LYMPHOCYTES % (AUTO) 23.9 % (13-45); MEAN CORPUSCULAR HEMOGLOBIN 31.7 pg (27.0-33.4); MEAN CORPUSCULAR HGB CONC 34.4 g/dL (32.0-36.0); MEAN CORPUSCULAR VOLUME 92 fl (80-97); MONOCYTES % (AUTO) 8.4 % (3-13); PLATELET COUNT 285 10^3/uL (150-450); RED BLOOD COUNT 4.01 10^6/uL (3.72-5.28); RED CELL DISTRIBUTION WIDTH 13.6 % (11.5-14.0); SEGMENTED NEUTROPHILS % (AUTO) 65.7 % (42-78); TOTAL CELLS COUNTED % (AUTO) 100 %; WHITE BLOOD COUNT 7.9 10^3/uL (4.0-10.5)
[2017-10-06 07:09] LABS: ANION GAP 10 (5-19); BLOOD UREA NITROGEN 9 mg/dL (7-20); CALCIUM 9.1 mg/dL (8.4-10.2); CARBON DIOXIDE 26 mmol/L (22-30); CHLORIDE 104 mmol/L (98-107); GLUCOSE 104 mg/dL (75-110); INTERNATIONAL RATION (INR) 1.15; POTASSIUM 3.9 mmol/L (3.6-5.0); PROTHROMBIN TIME 15.5 SEC (11.4-15.4); SODIUM 139.7 mmol/L (137-145)
[2017-10-06] MEDS ORDERED: POLYETHYLENE GLYCOL 3350 POWDER 17 GM/1 PACKET PO SCH ×2 (08:00)
[2017-10-06] MEDS: DILTIAZEM HCL 180 MG CAPSULE.CR PO SCH ×2 (09:29→21:36)
[2017-10-06] MEDS ORDERED: KETOROLAC TROMETHAMINE 10 MG TABLET PO PRN (10:59)
--- NOTE | 2017-10-06 10:59 | PDOC PROGRESS REPORT ---
Subjective Progress Note for:: 10/06/17 Reason For Visit: UNILATERAL INCARCERATED INGUINAL HERNIA And has not had a bowel movement in days; she has a long history She has had abdominal discomfort, food intolerance nausea and vomiting. Physical Exam Vital Signs: Temp Pulse Resp BP Pulse Ox 97.9 F 55 L 16 102/77 96 10/06/17 07:41 10/06/17 07:41 10/06/17 07:41 10/06/17 07:41 10/06/17 07:41 Intake & Output 10/05/17 10/06/17 10/07/17 06:59 06:59 07:59 Intake Total 1340 2270 Balance 1340 2270 Weight 82.1 kg General appearance: PRESENT: no acute distress GI/Abdominal exam: PRESENT: other - Not appearing abdomen; incision dressing removed and belen intact, requisite bruising as expected. There are no peritoneal signs. Results Laboratory Results: 10/06/17 06:08 10/06/17 06:08 10/05/17 10/06/17 10/06/17 11:44 06:08 06:08 WBC 7.9 RBC 4.01 Hgb 12.7 Hct 36.9 MCV 92 MCH 31.7 MCHC 34.4 RDW 13.6 Plt Count 285 Seg Neutrophils % 65.7 Lymphocytes % 23.9 Monocytes % 8.4 Eosinophils % 1.6 Basophils % 0.4 Absolute Neutrophils 5.2 Absolute Lymphocytes 1.9 Absolute Monocytes 0.7 Absolute Eosinophils 0.1 Absolute Basophils 0.0 Sodium 139.7 Potassium 3.9 Chloride 104 Carbon Dioxide 26 Anion Gap 10 BUN 9 Creatinine 0.74 0.64 Est GFR ( Amer) > 60 > 60 Est GFR (Non-Af Amer) > 60 > 60 Glucose 104 Calcium 9.1 10/03/17 17:42 Clean Catch Midstream Urine Culture - Final NO GROWTH 2 DAYS Impressions: Abdomen/Pelvis CT 10/02/17 09:05 IMPRESSION: Partial small bowel obstruction associated with incarcerated right inguinal hernia. Assessment & Plan - Time Disposition: Impression: 4 days status post repair of femoral hernia without mesh; no postoperative complications; slow return of bowel function likely due to chronic constipation, immobility pain medication etc. Medications: 1. We will get his cathartic this morning 2. Hold all narcotic pain medications 3. Anticipate discharge home later today or tomorrow pending clinical response.
--- NOTE | 2017-10-06 10:59 | PDOC PROGRESS REPORT ---
Subjective Progress Note for:: 10/06/17 Subjective:: Patient had one episode of emesis overnight. Had any more episodes of emesis. Patient states that she is afraid to eat. Patient did have a bowel movement with soapsuds enema. Reason For Visit: UNILATERAL INCARCERATED INGUINAL HERNIA Physical Exam Vital Signs: Temp Pulse Resp BP Pulse Ox 97.9 F 55 L 16 102/77 96 10/06/17 07:41 10/06/17 07:41 10/06/17 07:41 10/06/17 07:41 10/06/17 07:41 Intake & Output 10/05/17 10/06/17 10/07/17 06:59 06:59 07:59 Intake Total 1340 2270 Balance 1340 2270 Weight 82.1 kg General appearance: PRESENT: no acute distress, well-developed, well-nourished Head exam: PRESENT: atraumatic, normocephalic Eye exam: PRESENT: conjunctiva pink, EOMI. ABSENT: scleral icterus Ear exam: PRESENT: normal external ear exam Mouth exam: PRESENT: moist, tongue midline Neck exam: ABSENT: carotid bruit, JVD, lymphadenopathy, thyromegaly Respiratory exam: PRESENT: clear to auscultation jaimie. ABSENT: rales, rhonchi, wheezes Cardiovascular exam: PRESENT: RRR. ABSENT: diastolic murmur, rubs, systolic murmur Pulses: PRESENT: normal dorsalis pedis pul Vascular exam: PRESENT: normal capillary refill GI/Abdominal exam: PRESENT: normal bowel sounds, soft, tenderness. ABSENT: distended, guarding, mass, organolmegaly, rebound Rectal exam: PRESENT: deferred Extremities exam: PRESENT: full ROM. ABSENT: calf tenderness, clubbing, pedal edema Neurological exam: PRESENT: alert, awake, oriented to person, oriented to place , oriented to time, oriented to situation, CN II-XII grossly intact. ABSENT: motor sensory deficit Psychiatric exam: PRESENT: appropriate affect, normal mood. ABSENT: homicidal ideation, suicidal ideation Skin exam: PRESENT: dry, intact, warm. ABSENT: cyanosis, rash Results Laboratory Results: 10/06/17 06:08 10/06/17 06:08 10/05/17 10/06/17 10/06/17 11:44 06:08 06:08 WBC 7.9 RBC 4.01 Hgb 12.7 Hct 36.9 MCV 92 MCH 31.7 MCHC 34.4 RDW 13.6 Plt Count 285 Seg Neutrophils % 65.7 Lymphocytes % 23.9 Monocytes % 8.4 Eosinophils % 1.6 Basophils % 0.4 Absolute Neutrophils 5.2 Absolute Lymphocytes 1.9 Absolute Monocytes 0.7 Absolute Eosinophils 0.1 Absolute Basophils 0.0 Sodium 139.7 Potassium 3.9 Chloride 104 Carbon Dioxide 26 Anion Gap 10 BUN 9 Creatinine 0.74 0.64 Est GFR ( Amer) > 60 > 60 Est GFR (Non-Af Amer) > 60 > 60 Glucose 104 Calcium 9.1 10/03/17 17:42 Clean Catch Midstream Urine Culture - Final NO GROWTH 2 DAYS Impressions: Abdomen/Pelvis CT 10/02/17 09:05 IMPRESSION: Partial small bowel obstruction associated with incarcerated right inguinal hernia. Assessment & Plan - Diagnosis (1) Constipation Is this a current diagnosis for this admission?: Yes Plan: Will give mag citrate 1. Patient had enema last night with good results. (2) Incarcerated inguinal hernia Is this a current diagnosis for this admission?: Yes Plan: Status post reduction and repair of incarcerated right femoral hernia: Per surgery (3) Hypothyroidism Qualifiers: Hypothyroidism type: unspecified Qualified Code(s): E03.9 - Hypothyroidism , unspecified Is this a current diagnosis for this admission?: Yes Plan: Continue patient's Synthroid (4) Hyperlipidemia Qualifiers: Hyperlipidemia type: unspecified Qualified Code(s): E78.5 - Hyperlipidemia , unspecified Is this a current diagnosis for this admission?: Yes Plan: We will continue patient's statin (5) Atrial fibrillation Qualifiers: Atrial fibrillation type: chronic Qualified Code(s): I48.2 - Chronic atrial fibrillation Is this a current diagnosis for this admission?: Yes Plan: We will continue patient's diltiazem and patient restarted on Coumadin. (6) SBO (small bowel obstruction) Is this a current diagnosis for this admission?: Yes Plan: Status post reduction and repair of incarcerated femoral hernia: Resolved (7) Hypokalemia Is this a current diagnosis for this admission?: Yes Plan: Resolved. (8) Gram-positive cocci bacteremia Is this a current diagnosis for this admission?: Yes Plan: Contamination. Antibiotics discontinued (9) DVT prophylaxis Is this a current diagnosis for this admission?: Yes Plan: SCDs - Time Time Spent with patient: 15-24 minutes - Patient has no further episodes of emesis patient should be able to go home today. Patient given mag citrate patient should have bowel movement today.
[2017-10-06] MEDS ORDERED: MAGNESIUM CITRATE 296 ML BOTTLE PO ONE (12:30)
[2017-10-06] MEDS: ONDANSETRON HCL INJ/PF 4 MG/2 ML SDV IV PRN (15:28)
--- NOTE | 2017-10-06 15:30 | PDOC PROGRESS REPORT ---
Subjective Progress Note for:: 10/05/17 Subjective:: Feeling better. Heart rate seems well controlled at increased Cardizem dose.. Patient denying any chest or abdominal discomfort. No new complaints except for constipation. Tolerating p.o. well Reason For Visit: UNILATERAL INCARCERATED INGUINAL HERNIA Physical Exam Vital Signs: Temp Pulse Resp BP Pulse Ox 99.0 F 79 13 130/85 H 97 10/05/17 19:21 10/05/17 19:21 10/05/17 19:21 10/05/17 19:21 10/05/17 19:21 Intake & Output 10/04/17 10/05/17 10/06/17 06:59 06:59 06:59 Intake Total 1805 1340 970 Output Total 1450 Balance 355 1340 970 Weight 82.4 kg Exam: GENERAL: well-nourished and in no acute distress. Alert and oriented x3 HEAD: Atraumatic, normocephalic. EYES: Pupils equal round and reactive to light, extraocular movements intact, sclera anicteric, conjunctiva are normal. ENT: TMs normal, nares patent, oropharynx clear without exudates. Moist mucous membranes. No oral ulcerations or bleeding gums noted NECK: supple without lymphadenopathy. Trachea is central. No cervical or axillary lymphadenopathy noted. Carotids are 2+, JVD WNL LUNGS: Respiration seems nonlabored, no significant accessory muscle action noted. Breath sounds clear to auscultation bilaterally and equal noted. No wheezes rales or rhonchi noted. No significant dullness noted on percussion. CHEST: Palpation of the chest wall shows no significant chest wall tenderness. No other significant abnormalities noted. HEART: [place] [employer], No PSH, 1/6 JASE aortic area, 1/6 bazan systolic murmur mitral area, no rubs, no gallops. ABDOMEN: Soft, slight surgical site tenderness appreciated, normoactive bowel sounds. No guarding, no rebound. No rigidity noted . No masses appreciated. EXTREMITIES: Pedal pulses are 1-2+, no calf tenderness noted. No clubbing or cyanosis.trace to 1+ pedal edema noted NEUROLOGICAL: Focused neurological exam showed no significant neurologic deficit. Normal speech, no focal weakness appreciated. PSYCH: Normal mood, normal affect. Judgment and insight within normal limits. SKIN: No significant ecchymosis, skin is noted to be warm. MUSCULOSKELETAL EXAM: No significant acute joint swelling noted. Results Laboratory Results: 10/05/17 05:12 10/05/17 11:44 10/05/17 10/05/17 10/05/17 05:12 05:12 11:44 WBC 7.7 RBC 3.90 Hgb 12.5 Hct 35.7 L MCV 91 MCH 32.0 MCHC 35.0 RDW 13.4 Plt Count 271 Seg Neutrophils % 68.3 Lymphocytes % 19.0 Monocytes % 9.8 Eosinophils % 2.0 Basophils % 0.9 Absolute Neutrophils 5.2 Absolute Lymphocytes 1.5 Absolute Monocytes 0.8 Absolute Eosinophils 0.2 Absolute Basophils 0.1 Sodium 140.0 Potassium 3.6 Chloride 109 H Carbon Dioxide 23 Anion Gap 8 BUN 11 Creatinine 0.71 0.74 Est GFR ( Amer) > 60 > 60 Est GFR (Non-Af Amer) > 60 > 60 Glucose 109 Calcium 8.9 Total Bilirubin 0.8 AST 12 L ALT 28 Alkaline Phosphatase 60 Total Protein 5.7 L Albumin 3.0 L 10/03/17 17:42 Clean Catch Midstream Urine Culture - Final NO GROWTH 2 DAYS EKG Comments: Telemetry shows atrial fibrillation with controlled ventricular response Impressions: Abdomen/Pelvis CT 10/02/17 09:05 IMPRESSION: Partial small bowel obstruction associated with incarcerated right inguinal hernia. Assessment & Plan - Diagnosis (1) Preoperative cardiovascular examination Is this a current diagnosis for this admission?: Yes (2) Heart murmur Is this a current diagnosis for this admission?: Yes (3) Mitral regurgitation Qualifiers: Cardiac valve disease etiology: nonrheumatic Qualified Code(s): I34.0 - Nonrheumatic mitral (valve) insufficiency Is this a current diagnosis for this admission?: Yes (4) Aortic incompetence Qualifiers: Cardiac valve disease etiology: nonrheumatic Qualified Code(s): I35.1 - Nonrheumatic aortic (valve) insufficiency Is this a current diagnosis for this admission?: Yes (5) Atrial fibrillation Qualifiers: Atrial fibrillation type: chronic Qualified Code(s): I48.2 - Chronic atrial fibrillation Is this a current diagnosis for this admission?: Yes (6) Hyperlipidemia Qualifiers: Hyperlipidemia type: unspecified Qualified Code(s): E78.5 - Hyperlipidemia , unspecified Is this a current diagnosis for this admission?: Yes (7) Hypothyroidism Qualifiers: Hypothyroidism type: unspecified Qualified Code(s): E03.9 - Hypothyroidism , unspecified Is this a current diagnosis for this admission?: Yes (8) Incarcerated inguinal hernia Is this a current diagnosis for this admission?: Yes (9) coagulopathy due to coumadin Is this a current diagnosis for this admission?: Yes - Notes Notes: Atrial fibrillation: Currently heart rate well controlled on current dose of Cardizem CD 180 mg p.o twice daily. Could increase this further if needed or add small dose of beta-shweta.. Hyperlipidemia: Recommend statin therapy. Incarcerated hernia: Resolved after surgery Coagulopathy due to Coumadin: This has resolved. Coumadin has been reinstituted. INR goal is between 2 and 3. Will sign off as patient has done well cardiac manley. - Time Time with patient: 15-25 minutes - CODE STATUS was discussed, patient remains full code. Surrogate decision-maker unchanged. Multiple medical problems were addressed. More than 50% of the time spent coordinating care, discussing management plans with involved caregivers. Management plans discussed with involved personnels. Medical decision making was of moderate to high complexity , patient's has multiple comorbidities. Medications reviewed and adjusted accordingly: Yes
[2017-10-06] MEDS ORDERED: GLYCERIN (ADULT) SUPP.RECT PR ONE (16:30)
--- NOTE | 2017-10-06 16:58 | RADIOLOGY REPORT (SQ) ---
EXAM DESCRIPTION: ABDOMEN 2 VIEWS COMPLETED DATE/TIME: 10/06/2017 4:34 pm REASON FOR STUDY: Postoperative ileus versus otherwise COMPARISON: CT abdomen and pelvis 10/02/2017 NUMBER OF VIEWS: Three views. TECHNIQUE: Supine and erect/decubitus radiographic images of the abdomen acquired. LIMITATIONS: None. FINDINGS: FREE AIR: None. No abnormal gas collections. LUNG BASES: Clear. BOWEL GAS PATTERN: Air is seen within several prominent loops of small bowel within the mid abdomen, demonstrating air-fluid levels on the upright radiograph. CALCIFICATIONS: No suspicious calcifications. SOFT TISSUES: No gross mass or suggestion of organomegaly. HARDWARE: Skin belen project over the right lower quadrant. BONES: No acute fracture. No worrisome bone lesions. OTHER: No other significant finding. IMPRESSION: Constellation of findings consistent with postoperative ileus versus persistent small carl wel obstruction as demonstrated on comparison CT imaging dated 10/02/2017. TECHNICAL DOCUMENTATION: JOB ID: [id number] [employer]- All Rights Reserved Reading location - IP/workstation name: [email or web address]
[2017-10-06] MEDS: SIMVASTATIN 10 MG TABLET PO SCH (21:36)
[2017-10-06] MEDS: WARFARIN SODIUM 2 MG TABLET PO SCH (21:37)
[2017-10-07] MEDS: RINGERS SOLUTION,LACTATED 1,000 ML IV PRN (01:05)
[2017-10-07] MEDS: LEVOTHYROXINE SODIUM 0.088 MG TABLET PO SCH (05:20)
[2017-10-07 06:01] LABS: INTERNATIONAL RATION (INR) 1.22; PROTHROMBIN TIME 16.2 SEC (11.4-15.4)
[2017-10-07 06:14] LABS: ALANINE AMINOTRANSFERASE 24 U/L (9-52); ALKALINE PHOSPHATASE 64 U/L (38-126); ANION GAP 11 (5-19); ASPARTATE AMINO TRANSFERASE 14 U/L (14-36); BILIRUBIN,DIRECT 0.1 mg/dL (0.0-0.4); BILIRUBIN,TOTAL 0.6 mg/dL (0.2-1.3); BLOOD UREA NITROGEN 8 mg/dL (7-20); CALCIUM 8.7 mg/dL (8.4-10.2); CARBON DIOXIDE 26 mmol/L (22-30); CHLORIDE 104 mmol/L (98-107); GLUCOSE 87 mg/dL (75-110); POTASSIUM 3.8 mmol/L (3.6-5.0); SODIUM 141.2 mmol/L (137-145); TOTAL PROTEIN 5.2 g/dL (6.3-8.2)
[2017-10-07] MEDS ORDERED: POLYETHYLENE GLYCOL 3350 POWDER 17 GM/1 PACKET PO SCH (08:00)
[2017-10-07] MEDS: DILTIAZEM HCL 180 MG CAPSULE.CR PO SCH (10:55)
--- NOTE | 2017-10-07 11:16 | PDOC PROGRESS REPORT ---
Subjective Progress Note for:: 10/07/17 Subjective:: Pt states that she is feeling better this morning. Pt states that she has not had anymore nausea. Pt also states that she had 2 bowel movements. Reason For Visit: UNILATERAL INCARCERATED INGUINAL HERNIA Physical Exam Vital Signs: Temp Pulse Resp BP Pulse Ox 97.9 F 53 L 16 144/84 H 99 10/07/17 07:38 10/07/17 07:38 10/07/17 07:38 10/07/17 07:38 10/07/17 07:38 Intake & Output 10/06/17 10/07/17 10/08/17 05:59 06:59 06:59 Intake Total Balance Weight General appearance: PRESENT: no acute distress, well-developed, well-nourished Head exam: PRESENT: atraumatic, normocephalic Eye exam: PRESENT: conjunctiva pink, EOMI. ABSENT: scleral icterus Ear exam: PRESENT: normal external ear exam Mouth exam: PRESENT: moist, tongue midline Neck exam: ABSENT: carotid bruit, JVD, lymphadenopathy, thyromegaly Respiratory exam: PRESENT: clear to auscultation jaimie. ABSENT: rales, rhonchi, wheezes Cardiovascular exam: PRESENT: RRR. ABSENT: diastolic murmur, rubs, systolic murmur Pulses: PRESENT: normal dorsalis pedis pul Vascular exam: PRESENT: normal capillary refill GI/Abdominal exam: PRESENT: normal bowel sounds, soft Rectal exam: PRESENT: deferred Extremities exam: PRESENT: full ROM. ABSENT: calf tenderness, clubbing, pedal edema Musculoskeletal exam: PRESENT: full ROM Neurological exam: PRESENT: alert, awake, oriented to person, oriented to place , oriented to time, oriented to situation, CN II-XII grossly intact. ABSENT: motor sensory deficit Psychiatric exam: PRESENT: appropriate affect, normal mood. ABSENT: homicidal ideation, suicidal ideation Skin exam: PRESENT: dry, intact, warm. ABSENT: cyanosis, rash Results Laboratory Results: 10/06/17 06:08 10/07/17 05:18 10/07/17 05:18 Sodium 141.2 Potassium 3.8 Chloride 104 Carbon Dioxide 26 Anion Gap 11 BUN 8 Creatinine 0.68 Est GFR ( Amer) > 60 Est GFR (Non-Af Amer) > 60 Glucose 87 Calcium 8.7 Magnesium 2.0 Total Bilirubin 0.6 AST 14 ALT 24 Alkaline Phosphatase 64 Total Protein 5.2 L Albumin 3.0 L Impressions: Abdomen/Pelvis CT 10/02/17 09:05 IMPRESSION: Partial small bowel obstruction associated with incarcerated right inguinal hernia. Abdomen X-Ray 10/06/17 16:05 IMPRESSION: Constellation of findings consistent with postoperative ileus versus persistent small bowel obstruction as demonstrated on comparison CT imaging dated 10/02/2017. Assessment & Plan - Diagnosis (1) Constipation Is this a current diagnosis for this admission?: Yes Plan: Resolved. (2) Incarcerated inguinal hernia Is this a current diagnosis for this admission?: Yes Plan: Status post reduction and repair of incarcerated right femoral hernia: Per surgery (3) Hypothyroidism Qualifiers: Hypothyroidism type: unspecified Qualified Code(s): E03.9 - Hypothyroidism , unspecified Is this a current diagnosis for this admission?: Yes Plan: Continue patient's Synthroid (4) Hyperlipidemia Qualifiers: Hyperlipidemia type: unspecified Qualified Code(s): E78.5 - Hyperlipidemia , unspecified Is this a current diagnosis for this admission?: Yes Plan: We will continue patient's statin (5) Atrial fibrillation Qualifiers: Atrial fibrillation type: chronic Qualified Code(s): I48.2 - Chronic atrial fibrillation Is this a current diagnosis for this admission?: Yes Plan: We will continue patient's diltiazem and patient restarted on Coumadin. (6) SBO (small bowel obstruction) Is this a current diagnosis for this admission?: Yes Plan: Status post reduction and repair of incarcerated femoral hernia: Resolved (7) Hypokalemia Is this a current diagnosis for this admission?: Yes Plan: Resolved. (8) Gram-positive cocci bacteremia Is this a current diagnosis for this admission?: Yes Plan: Contamination. Antibiotics discontinued (9) DVT prophylaxis Is this a current diagnosis for this admission?: Yes Plan: SCDs - Time Time Spent with patient: 15-24 minutes
[2017-10-07 12:23] VITALS: BP 139/75
--- NOTE | 2017-10-07 13:34 | DISCHARGE SUMMARY E ---
Discharge Summary NAME: SANNA WHITFIELD : 1935 AGE: 82Y ADMITTED: 10/02/2017 DISCHARGED: 10/07/2017 REASON FOR ADMISSION: Incarcerated right femoral hernia. SUMMARY OF HOSPITALIZATION: The patient is an 82-year-old female who presents to the Emergency Department complaining of right groin pain. She was evaluated and found to have an incarcerated femoral hernia. She was admitted to the Surgical Service for definitive management. Past medical and surgical history can be found in the History and Physical document. The patient has history of atrial fibrillation. She is on Coumadin and her PT was prolonged. She therefore received 3 units of FFP, vitamin K and was taken to the operating room by Dr. Rony Meade where she underwent an open right femoral herniorrhaphy. She tolerated the procedure, however, her postoperative course was delayed due to postoperative ileus, nausea, failure to have a bowel movement. Gradually with reassurance, and cathartics, the patient's GI tract recovered. Of note, the patient was managed with Cardizem postoperatively By the fifth postoperative day, she was felt to have received maximum benefit from the hospitalization and was discharged home. Her incision was approximated satisfactorily. FINAL DIAGNOSIS: Incarcerated right femoral hernia, status post open repair by Rony Meade. DISPOSITION: The patient will be discharged home in the care of her family. Followup with [facility] in approximately 1-2 weeks, may shower, resume preoperative medications; be on no restrictive activity status; take Tylenol Motrin or Motrin p.r.n. pain. DICTATING PHYSICIAN: ERMA DENNY M.D. [id number] PHY#: [id number] ID: [id number] JOB#: [id number] ACCT: [id number] cc:Susu SAMPSON M.D. [facility],
== END 2017-10-07 13:29 | disposition home or self-care (01) | DRG 351 ==
LOC: ER 08:41 → EH 11:51 → 2S 15:40 → 3S 23:03
PROVIDERS: ADMIT Surgery; ATTEND Surgery
PROC: 30233K1 Transfusion of Nonautologous Frozen Plasma into Peripheral Vein, Percutaneous Approach (ICD-10-PCS; 2017-10-02)
PROC: 0YQ50ZZ Repair Right Inguinal Region, Open Approach (ICD-10-PCS; principal; 2017-10-02 21:15)
DX: K40.30 Unilateral inguinal hernia, with obstruction, without gangrene, not specified as recurrent (principal); K56.7 Ileus, unspecified; E87.6 Hypokalemia; I48.2 Chronic atrial fibrillation; E78.5 Hyperlipidemia, unspecified; I34.0 Nonrheumatic mitral (valve) insufficiency; E03.9 Hypothyroidism, unspecified; Z79.01 Long term (current) use of anticoagulants; Z88.6 Allergy status to analgesic agent
CPT/HCPCS: 36415; 36430; 74019; 74177; 80048; 80053; 80202; 81001; 82565; 830; 83690; 83735; 85025; 85610; 85730; 86900; 86901; 87040; 87077; 87086; 88302; 93005; 93010; 93306; 96361; 96374; 96375; 99285; J0330; J0690; J0696; J1170; J2060; J2250; J2405; J2704; J3010; J3370; J3430; J3480; J3490; J7030; J7060; J7120; P9017